=== PATIENT | male | born 1950 | race Caucasian/White ===

== ENCOUNTER 2024-10-18 07:39 | Inpatient (IN) | payer MEDICARE, OTHER, SELFPAY ==
[2024-10-18] VITALS (20 sets, daily range): BP systolic 126–166; BP diastolic 66–85; PULSE 68–95; RESP 15–25; TEMP 36.5–37.1; O2SAT 92–97; BMI 33.7
--- NOTE | ~2024-10-18 | CT_ITS ---
EXAMINATION: CTA chest PE abdomen pel DATE: 10/18/2024 10:09 INDICATION: Shortness of breath, cough and left upper quadrant abdominal pain TECHNIQUE: Computed tomography (CT) pulmonary angiogram of the chest was performed with 100 mL Omnipa que-350 intravenous contrast. Additional 3D reconstructions utilizing coronal maximum intensity proje ction (MIP) were performed. CT of the abdomen and pelvis was performed with intravenous contrast util izing the same contrast bolus following a short delay. Automated exposure control and iterative recon struction technique were employed. The dose-length product was 1283.20 mGy-cm. COMPARISON: CT abdomen dated 10/04 cm right FINDINGS: Chest: No pulmonary embolism. Patchy groundglass opacities and consolidation in the left lower lobe and depe ndent lingula consistent with aspiration or pneumonia. A few tiny calcified nodules in the right lowe r lobe and a couple large calcifications in the left upper lobe consistent with old granulomatous dis ease. No pulmonary edema or pleural effusion. Heart size is normal. No pericardial effusion. Thoracic aorta is normal in caliber with no dissection. No pathologically enlarged thoracic lymphadenopathy. Visualized upper abdomen is unremarkable. Moderate thoracic spondylosis with chronic appearing mild a nterior wedging of a few mid and lower thoracic vertebral bodies. Anterior plate and screw fixation f or C4-C7 anterior spinal fusion with incompletely visualized on the consulting services project manager topogram. Abdomen/pelvis: 1. No pulmonary embolism. 2. Aspiration and/or pneumonia in the left lower lobe and dependent lingula. IMPRESSION: 1. Reviewed, dictated and finalized at location A. IMPRESSION: 1.
--- NOTE | ~2024-10-18 | XR_ITS ---
CHEST RADIOGRAPH, PA AND LATERAL CLINICAL HISTORY: cough , shortness of breath, pain lt upper abdomen . COMPARISON: 02/27/2011 TECHNIQUE: PA and lateral views of the chest. FINDINGS Hazy opacification of the left heart border. The remainder of the cardiomediastinal silhouette is otherwise unremarkable. Blunting of the left costophrenic sulcus suggesting a small left-sided pleural effusion with adjacent compressive atelectasis. Redemonstration of a asymmetry within the left upper lobe, increased in size from 2010 with tenting o f the adjacent pleura. Unless this is a known finding, cross-sectional imaging is recommended. The remainder of the lungs are otherwise clear. IMPRESSION: Small left-sided pleural effusion with adjacent compressive atelectasis. Redemonstration of a multilobulated asymmetry within the left upper lobe, increased in size from 2010 with tenting of the adjacent pleura. Unless this is a known finding, cross-sectional imaging is recommended. Reviewed, dictated and finalized at location A. IMPRESSION: Small left-sided pleural effusion with adjacent compressive atelectasis. Redemonstration of a multilobulated asymmetry within the left upper lobe, incre ased in size from 2010 with tenting of the adjacent pleura. Unless this is a known finding, cross-sectional imaging is recommended.
--- OUTSIDE RECORDS SUMMARY | 2024-10-18 07:42 | XMS_ITS | Clinical Summary ---
Author Organization [facility] Address [address] [place] [address] Care Team Providers Care Car Rental Service Attendant Name Role Phone Peng Villatoro MD Primary Care Provider Source Comments [facility],non-owned Affiliates and Associated Physician Practices is amultiple site organization consisting of ambulatory clinics and hospital sitesin [place], [place], [place] and [place]. This disclosure is being madepursuant to the Care Everywhere program and may not contain all information available regarding this patient. Last updated 17.[facility] Allergies No known active allergies Medications * Be aware that medications may not be up to date on this document. Alwaysverify current medications with the patient. vilazodone (VIIBRYD) 20 MG tablet Take 20 mg by mouth daily with breakfast Active esomeprazole (NEXIUM) 40 MG capsule Take 40 mg by mouth daily before breakfast Active tamsulosin (FLOMAX) 0.4 MG capsule Take 0.4 mg by mouth once daily Take 30 minutes after a meal at the same time each day. 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 Gender Identity Not on file Sexual Orientation Not on file Last Filed Vital Signs Vital Sign Reading Time Taken Comments Blood Pressure 120/78 02/23/2018 10:40 AM ACADEMIC MANAGER Pulse 71 02/23/2018 10:40 AM ACADEMIC MANAGER Temperature 37.2 C (98.9 F) 02/23/2018 10:40 AM ACADEMIC MANAGER Respiratory Rate 16 02/23/2018 10:40 AM ACADEMIC MANAGER Oxygen Saturation 98% 02/23/2018 10:40 AM ACADEMIC MANAGER Inhaled Oxygen Concentration - - Weight 81.6 kg (180 lb) 02/23/2018 10:40 AM ACADEMIC MANAGER Height 167.6 cm (5' 6) 02/23/2018 10:40 AM ACADEMIC MANAGER Body Mass Index 29.05 02/23/2018 10:40 AM ACADEMIC MANAGER Plan of Treatment Health Maintenance Due Date Last Done Comments COLOGUARD (AGES 45-75) - COL ON CA SCREENING 1950 COLON MONITORING 1950 COLONOSCOPY - COLON CA SCREENING [address] CT COLONOGRAPHY - COLON CA SCREENING 1950 Colorectal Cancer Screening 1950 FIT - COLON CA SCREENING 1950 FLEX SIG - COLON CA SCREENING 1950 LIPID TESTING 1950 HEPATITIS C SCREENING 10/28/1968 DTAP/TDAP/TD VACCINES (1 - Tdap) 1969 PNEUMOCOCCAL VACCINE 50+ (1 of 1 - PCV) 2000 ZOSTER VACCINE (1 of 2) 2000 SCREENING FOR DIABETES 04/25/2017 COVID-19 VACCINE (1 - 2023-2 5 season) 2023 DEPRESSION SCREENING 03/03/2024 INFLUENZA VACCINE (#1) 2024 Respiratory Syncytial Virus (RSV) Vaccine Pt: or over 60 yrs (1 - 1-dose 75+ series) 2025 HEPATITIS B VACCINE Aged Out No longe r eligible based on patient's age to complete this topic HIB VACCINE Aged Out No longer eligi ble based on patient's age to complete this topic HPV VACCINE Aged Out No longer eligi ble based on patient's age to complete this topic MENINGOCOCCAL (Group B) VACC INE SHARED DECISION-MAKING Aged Out No longer eligibl e based on patient's age to complete this topic MENINGOCOCCAL GROUPS A/C/Y/W VACCINE Aged Out No longer eligible b ased on patient's age to complete this topic Insurance MEDICARE MEDICARE Care Teams Car Rental Service Attendant Relationship Specialty Start Date End Date Peng Villatoro MD [address] [place] [id number] PCP - General Internal Medicine 04/25/17
--- OUTSIDE RECORDS SUMMARY | 2024-10-18 07:42 | XMS_ITS | Clinical Summary ---
Author Organization [facility] Address [address] [place] [address] Care Team Providers Care Outer Diameter Grinder Name Role Phone Peng Villatoro MD Primary Care Provider Ca Cox MD Unavailable Gabby Churchill MD Unavailable [phone] Osmel Patel MD Unavailable [phone] Fei Barajas OD Unavailable [phone] Allergies No known active allergies Medications cyanocobalamin (Vitamin B-12) 2,000 mcg tablet Take 500 mcg by mouth daily Active cholecalciferol , vitamin D3, 5,000 unit/mL drops Take 5,000 Units by mouth daily Active fexofenadine (ROMELIA) 180 mg tabletIndicatio ns:prn Take 1 tablet (180 mg total) by mouth daily Active fluticasone propion-salmete roL (ADVAIR HFA) 230-21 mcg/actuation inhaler Inhale 2 puffs 2 (two) times a day Rinse mouth with water after use. Do not swallow. 3 each 3 4 Active albuterol HFA (PROVENTIL HFA,VENTOLIN HFA,PROAIR HFA) 90 mcg/actuation inhaler Inhale 2 puffs every 6 (six) hours as needed for wheezing Active vilazodone (VIIBRYD) 20 mg tabletIndicatio ns:major depressive disorder Take 1 tablet (20 mg total) by mouth every morning Active losartan (COZAAR) 50 mg tablet Take 1 tablet (50 mg total) by mouth nightly Active montelukast (SINGULAIR) 10 mg tablet Take 1 tablet (10 mg total) by mouth nightly Active testosterone 1.62 % (20.25 mg/1.25 gram) gel in packet Place on the skin daily Active esomeprazole DR (NexIUM) 40 mg capsule Take 1 capsule (40 mg total) by mouth daily before dinner 90 capsule 1 5 Active acetaminophen 500 mg capsuleIndicati ons:Pain Take 2 capsules (1,000 mg total) by mouth every 6 (six) hours 5 Active senna-docusate (PERICOLACE) 8.6-50 mgIndications:c onstipation Take 2 tablets by mouth 2 (two) times a day 5 Active tamsulosin (FLOMAX) 0.4 mg extended release capsule TAKE 1 CAPSULE DAILY 90 capsule 3 5 Active cyclobenzaprine (FLEXERIL) 5 mg tablet Take 1 tablet (5 mg total) by mouth every 8 (eight) hours as needed for muscle spasms 90 tablet 5 Active oxyCODONE (ROXICODONE) 5 mg immediate release tabletIndicatio ns:Pain Take 1 tablet (5 mg total) by mouth every 4 (four) hours as needed for pain 42 tablet 5 Active tirzepatide, weight loss, (Zepbound) 2.5 mg/0.5 mL pen injectorIndicat ions:BMI 34.0-34.9,adult ,Obstructive sleep apnea Inject 0.5 mL (2.5 mg total) under the skin every 7 days 2 mL 5 Active pravastatin (PRAVACHOL) 10 mg tablet Take 1 tablet (10 mg total) by mouth daily 90 tablet 4 5 06/20/19 26 Active amoxicillin (AMOXIL) 500 mg tablet/capsule Take 4 pills 1 hour prior to procedure 4 tablet/capsul e 5 Active cephalexin (KEFLEX) 500 mg capsule TAKE 1 CAPSULE BY MOUTH EVERY 6 HOURS UNTIL GONE 5 Active meloxicam (MOBIC) 15 mg tablet Take 1 tablet (15 mg total) by mouth daily 30 tablet 2 5 11/12/19 25 Active testosterone (ANDROGEL) 1 % (25 mg/2.5gram) gel in packet PLACE 1 PACKET ON THE SKIN ONCE DAILY 75 g 5 Active atorvastatin (LIPITOR) 10 mg tablet Take 1 tablet (10 mg total) by mouth daily 90 tablet 5 10/16/19 26 Active Active Problems Problem Noted Date Diagnosed Date Cervical myelopathy with cervical radiculopathy 03/24/2024 Spinal stenosis in cervical region 02/19/2024 Cervical spondylosis with myelopathy 02/19/2024 Restless legs syndrome 04/29/2023 Assessment & Plan (08/18/2023 2:33 PM CDT): Denied need for medication Assessment & Plan (04/29/2023 1:23 PM UNIT LEADER): I have started gabapentin 300 mg nightly try to consolidate patient sleep and Relieve the tingling and pain in his feet. Esophageal stricture 01/07/2023 Transient ischemic attack 01/07/2023 Pain in both upper extremities 04/30/2022 Assessment & Plan (04/30/2022 2:16 PM UNIT LEADER): I did inform the patient to message his primary care for provider for further evaluation. The patient verbalized that he would message in [employer]. Obstructive sleep apnea 12/25/2021 Assessment & Plan (08/23/2024 1:21 PM CDT): The patient continues to benefit from the auto titrating CPAP unit with a range of 5-15 cm water pressure for ongoing symptoms of AURELIO. His DME supplier is [employer]. He will follow up here in 1 year. Assessment & Plan (08/18/2023 2:33 PM CDT): Due to continued symptoms, the patient will continue CPAP at 5-15 cm water pressure. Denied need for supplies. DME [facility] Assessment & Plan (04/29/2023 1:24 PM UNIT LEADER): Due to continued symptoms, the patient will continue CPAP at 5-15 cm water pressure. Denied need for supplies. DME [facility] Assessment & Plan (04/30/2022 2:15 PM UNIT LEADER): Patient continue to wear his CPAP in auto titrating range of five to 20 cm water pressure while sleeping. His DME is [employer]. Assessment & Plan (12/25/2021 2:14 PM CDT): Patient continue to wear his CPAP in auto titrating range of five to 20 cm water pressure while sleeping. His DME is [employer]. Mild persistent asthma 11/04/2021 Hypersomnia 09/04/2021 Benign prostatic hyperplasia with nocturia 01/03 Low testosterone in male 12/26/2020 Lesion of bladder 09/11/2020 Overview (09/11/2020): Added automatically from request for surgery [id number] Sensorineural hearing loss (SNHL) of both ears 0 06/12/2020 Dysfunction of both eustachian tubes 06/12/2020 TMJ arthralgia 06/12/2020 Microscopic hematuria 03/09/2020 Upper back pain on right side 03/02/2020 Assessment & Plan (03/02/2020 4:33 PM UNIT LEADER): Musculoskeletal Pain Assessment: Musculoskeletal in nature, likely muscle spasm or muscle strain. Reassuring exam, no red flags, no role for imaging at this time. Musculoskeletal Pain Plan: Musculoskeletal types of injuries do best with daily around the clock treatment and can persist for roughly 4-6 weeks. Do not overuse the area of concern and utilize the the symptom management below. If you are not bit by bit better in 4-6 weeks please make a return visit for follow-up for the next steps. Physical Therapy/Imaging and other testing or therapy will be done on an individual basis as needed. For more help with stretching/exercises check out [facility] exercises via Youtube. Symptom management includes: -Tylenol (acetaminophen) 1000mg every 8 hours as needed for pain. Do not use when drinking alcohol as both metabolize through the liver. (Max dose is 1000mg every 8 hours) Consistency is sesay, but try NOT to use more than 3 weeks at at time. (Only use the dose you need for the control of the pain- if 325mg every 8 hours works then use the 325mg every 8 hours). - Use the Muscle Relaxer (cyclobenzaprine) as needed, along with the anti-inflammatory above. The use of the muscle relaxer should also be done on a more consistent basis, even just nightly to help relieve the muscle spasms/tension. Take this medication about 1 hour prior to going to bed to see if it makes you sleepy. Do not use this medication if you are operating heavy machinery or if it makes you drowsy. - Diclofenac gel to be used topically as needed on affected area for pain - Rest area. If it hurts do not continue to do that activity, do not overexert, but stay as physically active as possible. Your muscles will stiffen up if you do not use them. - Heat and/or Ice to the area at least twice a day for 20 minutes. Doing this more often is encouraged. Typically will use Heat for muscle spasms and Ice with joints and swelling, but either or both can be used depending on your preference. (Check into the heat stick on patches at our pharmacy as these can be very convenient). If you use a heating pad, great- just do not sleep with the heating pad as it may burn you. - Continue to do gentle stretching exercises at least twice a day, best if after the heat/ice application. - Can use Biofreeze or [facility], sold over the counter, follow directions on the medication. - Can use a lidocaine patch, sold over the counter, follow directions on the medication. Do not use at the same time you use heat on the area. Dysphagia 07/11/2017 Hyperlipidemia 11/18/2016 GERD (gastroesophageal reflux disease) 4 Anemia 06/25/2011 Depression 06/25/2011 Hypertension 06/25/2011 Shortness of breath Resolved Problems Problem Noted Date Diagnosed Date Resolved Date Snoring 09/04/2021 12/25/2021 Assessment & Plan (09/04/2021 2:00 PM CDT): I have ordered a nocturnal polysomnogram split night protocol if necessary, no MSLT. Tinnitus of both ears 06/12/20202020 Dysuria 03/15/2020 10/11/2021 Malaise and fatigue 03/15/2020 10/12/19 22 Acute non-recurrent frontal sinusitis 11/01/2019 10/11/2021 Assessment & Plan (11/01/2019 2:36 PM CDT): On day 7, covid test negative. Can not fully fit as a bacterial sinus infection at this time, however two more day and he is feeling bit by bit worse, with low grade fever and starting with tooth pain. Will have him add the flonase and the tylenol to the Claritin regimen (stop ibu) for the next two days If no improvement he will need to go and pickle processor the antibiotic and begin as directed until gone. Start antibiotics after Friday if needed. General Discussion regarding Role of antibiotics: Antimicrobial therapy -- Many Upper Respiratory Infections are caused by viruses. Inappropriate use of antibiotics for viral respiratory infections can cause adverse events and contribute to development of antibiotic resistance. It is my goal to keep you safe and healthy medical terminologist as well as help you feel better. If antibiotics or steroids are ordered: Be aware of the potential adverse effects of each. Gastrointestinal upset (diarrhea/nausea) happens frequently-yogurt or a probiotic are encouraged along with drinking plenty of fluids. Please also continue the general measures below for symptom control. Rest and plenty of oral fluids are encouraged. Should symptoms not improve or should they get worse following the completion of antibiotic therapy the patient is encouraged to call this office. Symptom Management: To help keep the healing process on track please make sure to keep up with oral fluids 64 ounces of water and get plenty of rest while using the following guide to help you with your symptoms. # Pain, Fever and Inflammation: Tylenol/acetaminophen 1000mg every 8 hours as needed, but more regularly with symptoms. Max dose of Tylenol 3,000 per day- no more than 1,000mg every 8 hours. Please do not take tylenol/acetaminophen if you have liver issues of if you drink alcohol daily . Alcohol and tylenol/acetaminophen as they both metabolize through the liver. Only take the lowest dose needed for the shortest amount of time- do not use more than 2 weeks without calling our office. # Runny Nose, Sinus Congestion, Back of the Throat Drainage, Itchy Throat: Antihistamine daily (at night if it makes you tired) Examples are: Zyrtec/Cetrizine, Romelia/Fexofenadine or Claritin/Loratadine- only choose and use one and take as directed on the box. Neti-pot OR Normal Saline Nose [place] in the morning and the evening at least. Use the normal saline/neti-pot prior to other medicated nose sprays. This will help to rinse the nose prior to fluticasone. This will also help keep your nose moist and help avoid nose scabbing/nose bleeds. Flonase/fluticasone or Nasacort nose spray. Use 2 sprays each nostril the first dose and then change to 1 spray each nostril morning and evening. Only take the lowest dose needed for the shortest amount of time- do not use more than 3 weeks without calling our office. Use after normal saline nose spray/neti-pot. # Itchy Watery eyes: Ketotifen (Zaditor or Alaway OTC Zyrtec) 1 drop every 8 to 12 hours OR Pataday Olopatadine OTC Patanol 0.1% 1 drop in each eye twice a day at an interval of 6 to 8 hours. # Cough Suppression and Mucus Thinning: Mucinex DM morning and evening. This medication is safe for people with high blood pres sure. If you have High Blood Pressure, avoid decongestants such as pseudoephedrine (Sudafed) and phenylephrine-these will raise your blood pressure. Tessalon Pearls if ordered and as needed for cough- This is a prescription medication your provider has to send in. # Sore or Itchy Throat: Throat spray, cough drops, salt water gargle (1 teaspoon salt in 1cup/8oz. of warm water) morning and evening at least, and warm tea (water if you do not like tea) with honey and lemon. Can also try to melt a cough drop into the tea to help. If illness goes beyond 10 days please let the office know for next steps. Call the office with questions. Wheezing 10/11/2021 Encounters Date Type Department Care Team Description 09/17/2024 1:20 PM CDT Office Visit [facility] [address] [place] [phone] Peng Villatoro MD Mixed hyperlipidemia (Primary Dx); Primary hypertension; Gastroesophageal reflux disease without esophagitis; Recurrent major depressive disorder, in full remission; BMI 34.0-34.9,adult 09/17/2024 Telephone [facility] [address] [place] [phone] Peng Villatoro MD PA ZEPBOUND 2.5MG/0.5ML (Sesay: [id number]) 09/11/2024 7:25 AM CDT - 09/11/2024 11:59 PM CDT Hospital Encounter [facility] [address] [place] [phone] Cough, unspecified type Discharge Disposition: Discharge to home or self care 09/10/2024 1:17 PM CDT - 09/10/2024 11:59 PM CDT Hospital Encounter [facility] [address] [place] [phone] Cough, unspecified type Discharge Disposition: Discharge to home or self care 08/27/2024 10:31 AM CDT - 08/27/2024 11:59 PM CDT Hospital Encounter [facility] [address] [place] [address] Tino Trevino MD Right hip pain (Primary Dx) Discharge Disposition: Discharge to home or self care 08/23/2024 1:15 PM CDT Office Visit [facility] [address] [phone] Vic Chen MD Obstructive sleep apnea (Primary Dx) 08/20/2024 Telephone [facility] [address] [place] [address] [place] [phone] Peng Villatoro MD PA TESTOSTERONE 25MG/2.5GM (1%) GEL (Sesay: [id number]//Status/Sent to Plan today/Drug/Testosterone 25 MG/2.5GM(1%) gel//Form/ Electronic PA Form (2017 GAPDP)/Original Claim Info/75 CALL HELP DESK/) 08/18/2024 1:45 PM CDT Office Visit [facility] [address] [facility] [address]th [place] [address] [place] [address] Dean Samson MD Right shoulder pain, unspecified chronicity (Primary Dx); Chronic right shoulder pain; Arthritis of right shoulder 08/18/2024 1:06 PM CDT - 08/18/2024 11:59 PM CDT Hospital Encounter [facility] [address] [place] [address] Right shoulder pain, unspecified chronicity Discharge Disposition: Discharge to home or self care 08/13/2024 11:00 AM CDT Office Visit [facility] [address] [facility] Medical Office Building [address] [place] [phone] Jenny Martinez NP Hip pain, right (Primary Dx); Right hip pain 08/13/2024 10:27 AM CDT - 08/13/2024 11:59 PM CDT Hospital Encounter [facility] [address] [facility] [address] [place] [phone] Hip pain, right Discharge Disposition: Discharge to home or self care 08/06/2024 1:20 PM CDT Office Visit [facility] Department of Otolaryngology Head-Neck Division [address] [facility] Floor 5 [place] [phone] Janell Delaney PA Laryngopharyngeal reflux (LPR) (Primary Dx) 07/21/2024 Telephone [facility] [address] [place] [address] Medical Office Building [address], [address] [place] [phone] Beba Ridley CMA [facility] Appt. from Last 3 Months Immunizations Immunization Administration Dates Next Due Influenza, Quadrivalent, Hig h Dose, Preservative Free, Intrr 02/10/2023,02/01/2022,12/28/2019 Influenza, Trivalent, Adjuva nted, Intramuscular 12/09/2017 Influenza, Trivalent, High D ose, Split, Preservative Free, Intramuscular 12/14/2018,11/18/2016,11/13/2015 Influenza, Trivalent, Preser vative Free, Intramuscular 11/23/2014 Influenza, Unspecified 02/10/2023,12/05/2006 Pneumococcal Conjugate PCV 13 11/13/2015 Pneumococcal Polysaccharide PPV23 11/18/2016 Tdap 07/26/2015,09/02/2007 ZOSTER Recombinant 08/30/2018,06/16/2018 Surgical History Surgery Date Site/Laterality Comments ESOPHAGOGASTRODUODENOSCOPY COLONOSCOPY SINUS SURGERY VASECTOMY TONSILLECTOMY FLUORO GUIDED INJECTION HIP RIGHT 08/27/2024 Right Medical History Medical History Date Comments Basal cell carcinoma Difficulty swallowing Hypertension GERD (gastroesophageal reflux disease) Anxiety Restless legs syndrome (RLS) per Pt TIA (transient ischemic attack) HL (hearing loss) Sleep apnea Asthma 2021 Spinal stenosis in cervical region Obesity Family History Medical History Relation Name Comments Cancer Brother 1 C Family history of malignant neoplasm - (Added by TW Conv) Liver disease Brother 2 Family history of hepatic failure - (Added by TW Conv) Cancer Father W Family history of malignant neoplasm - (Added by TW Conv) Hearing loss Father W Kidney disease Father W Family histor y of kidney disease - (Added by TW Conv) Crohn's disease Mother Family histo ry of Crohn's disease - (Added by TW Conv) Heart attack Mother Family history of myocardial infarction - (Added by TW Conv) Cancer Sister B Family history of malignant neoplasm - (Added by TW Conv) Relation Name Status Comments Brother 1 C Brother 2 Father W Mother Sister B Social History Tobacco Use Types Packs/Day Years Used Date Smoking Tobacco: Never Smokeless Tobacco: Never Tobacco Cessation:Counseling Given: Yes Alcohol Use Standard Drinks/Week Comments Yes 0 (1 standard drink = 0.6 oz pur e alcohol) AUDIT-C Answer Date Recorded Q1: How often do you have a drink containing alcohol? 4 or more times a week 03/15/2024 Q2: How many drinks containi ng alcohol do you have on a typical day when you are drinking? 1 or 2 Q3: How often do you have si x or more drinks on one occasion? Never 03/15/2024 PHQ-2 Answer Date Recorded PHQ-2 Total Score (If total score is 3 or more points, staff should administer the PHQ-9) 0 06/18/2024 Personal Safety Answer Date Recorded Have you ever been in or are you currently in a harmful physical or emotional relationship or is someone making you feel afraid or unsafe? Denies 08/27/2024 Sex and Gender Information Value Date Recorded Sex Assigned at Not on file Legal Sex Male 2:13 AM UNIT LEADER Gender Identity Male 02/08/2020 2:48 PM UNIT LEADER Sexual Orientation Straight 02/08/2020 2: 48 PM UNIT LEADER Obstetrics History Last Filed Vital Signs Vital Sign Reading Time Taken Comments Blood Pressure 134/64 09/17/2024 1:33 PM CDT Pulse 75 09/17/2024 1:19 PM CDT Temperature 36.7 C (98 F) 08/23/2024 1:04 PM CDT Respiratory Rate 18 08/27/2024 11:2 6 AM CDT Oxygen Saturation 96% 09/17/2024 1:19 PM CDT Inhaled Oxygen Concentration - - Weight 97.4 kg (214 lb 12.8 oz) 09/17/2024 1:19 PM CDT Height 167.6 cm (5' 6) 08/23/2024 1:04 PM CDT Body Mass Index 34.67 08/23/2024 1:04 PM CDT Plan of Treatment Scheduled Procedures Name Priority Associated Diagnoses Date/Ti me ESOPHAGOGASTRODUODENOSCOPY Esophageal dysphagia Health Maintenance Due Date Last Done Comments Hepatitis B Screening 1968 Influenza Vaccine (#1) 2024 , 02/10/2023, 02/01/2022, Additional history exists Depression Screening 06/18/2025 06/18/2024, 10/06/2023, 06/16/2023, Additional history exists Well Visit 65+ 06/18/2025 06/18/2024, 06/01, 06/16/2023, Additional history exists DTaP/Tdap/Td Vaccine (3 - Td or Tdap) 07/25/2025 07/26/2015, 09/02/2007 Fall Risk Assessment 08/27/2025 08/27/2024, 06/18/2024, 06/16/2023, Additional history exists Colon Cancer Screening-Colonoscopy 04/16/2026 04/16/2016 Colon Cancer Screening-CT Colonography Discontinued 04/16/2016 Colon Cancer Screening-DNA Stool Discontinued 04/16/19 17 Colon Cancer Screening-FIT Discontinued 04/16/2016 Colon Cancer Screening-Sigmoidoscopy Discontinued 04/16/2016 Pneumococcal vaccine 65+ Completed 11/18/2016, 11/01 Zoster Vaccine Completed 08/30/2018, 06/16/2018 Hepatitis C Screening Completed 12/14/2018 Prostate Cancer Screening-PSA Discontinued , 06/20/2023, 01/10/2022, Additional history exists Medical Devices Implanted Type Area Grave Digger Device Identifier Shelf Expiration Date Model / Serial / Lot [employer],Gastric Clip,Resolution 360 Ultra Stomach Musculoskeletal Transplant [id number] Frozen Spine 7d Lordotic Trapezoid Spacer Allograft [id number] - [id number] - [id number] Implanted:Qty: 1 on 03/24/2024 by Roel Toro MD at [facility] N/A: Spine Cervical Musculoskeletal Transplant 01/07/2028 [id number] / [id number] / Musculoskeletal Transplant [id number] Freeze Dried Spine 7d Lordotic Trapezoid Spacer 647013 - [id number] - [id number] Implanted:Qty: 1 on 03/24/2024 by Roel Toro MD at [facility] N/A: Spine Cervical Musculoskeletal Transplant 01/11/2026 [id number] / [id number] / Musculoskeletal Transplant [id number] Frozen Spine 7d Lordotic Trapezoid Spacer Allograft 602763 - [id number] - [id number] Implanted:Qty: 1 on 03/24/2024 by Roel Toro MD at [facility] N/A: Spine Cervical Musculoskeletal Transplant 05/24/2028 [id number] / [id number] / [employer] Maxan 48mm Level 3 Spine Cervical Anterior Plate Bone Titanium [id number] - [id number] Implanted:Qty: 1 on 03/24/2024 by Roel Toro MD at [facility] N/A: Spine Cervical [employer] [id number] / / [employer] 4mm 16mm Fix Screw Bone [id number] - [id number] Implanted:Qty: 6 on 03/24/2024 by Roel Toro MD at [facility] N/A: Spine Cervical [employer] [id number] / / [employer] 4.5mm 16mm Fix Screw Bone [id number] - [id number] Implanted:Qty: 2 on 03/24/2024 by Roel Toro MD at [facility] N/A: Spine Cervical [employer] [id number] / / Explanted Type Area Grave Digger Device Identifier Shelf Expiration Date Model / Serial / Lot [employer] 4mm 16mm Fix Screw Bone [id number] - [id number] Explanted:Qty: 1 on 03/24/2024 by Roel Toro MD at [facility] N/A: Spine Cervical [employer] [id number] / / Procedures Procedure Name Priority Date/Time Associated Diagnosis Comments AEROBIC CULTURE AND GRAM STAIN Routine 09/11/2024 7:00 AM CDT Cough, unspecified type XR CHEST PA LATERAL 2 VIEWS Schedule Routine, Read Routine (OP Routine) 09/10/2024 1:29 PM CDT Cough, unspecified type FLUORO GUIDED INJECTION HIP RIGHT Schedule Routine, Read Routine (OP Routine) 08/27/2024 11:22 AM CDT Right hip pain TX ARTHROCENTESIS ASPIR&/INJ MAJOR JT/BURSA W/O US Routine 08/18/2024 1:45 PM CDT Right shoulder pain, unspecified chronicity Arthritis of right shoulder XR SHOULDER RIGHT 2 OR MORE VIEWS Schedule Routine, Read Routine (OP Routine) 08/18/2024 1:14 PM CDT Right shoulder pain, unspecified chronicity XR HIP RIGHT W PELVIS 2 OR 3 VIEWS Schedule Routine, Read Routine (OP Routine) 08/13/2024 10:51 AM CDT Hip pain, right PSA SCREEN Routine 06/18/2024 10:10 AM CDT Prostate cancer screening HEPATITIS C ANTIBODY Routine 12/14/2018 12:18 PM CDT Need for hepatitis C screening test COLONOSCOPY REPORT 04/16/2016 from Last 3 Months or Most Recently Relevant to Health Maintenance Results * Aerobic culture and gram stain Sputum Sputum (09/11/2024 7:00 AM CDT) Direct Specimen Exam Stain: Abundant squamous epithelial cells seen indicating excessive oropharyngeal contamination. Culture will not be processed further. Please submit another specimen. Smear results called to and read back by: Charmaine Desai MT ([phone]) on 09/11/2024 12:06:45 by: Bryan Levin MLS Comment:Testing performed by : [facility], [address] [place]., [address] Report Final Report: This is the final report. KEYONNA Comment:Testing performed by : [facility], [address] [place] [address]., [id number] Sputum (Sputum) 09/11/2024 7 :00 AM CDT 09/11/2024 11:09 AM CDT Narrative KEYNONA PATTEN - 09/12/2024 8:16 AM CDT With susceptibility Testing performed by [facility] ([phone]) Specimens submitted from normally sterile body sites will have all bacterial morphotypes identified. Specimens that contain grossly mixed alexx and/or are from body sites that are not normally sterile will be examined for Staphylococcus aureus, Pseudomonas aeruginosa, beta-hemolytic strep, vancomycin-resistant Enterococcus and fungus. If any of these are isolated, the organism will be reported. Current interpretive data was last revised on 2016. us Vic Chen MD LAB MICROBIOLOGY - GENERA L ORDERABLES Final Result [facility] [address] [facility] Department [place] [address] * X-ray chest 2 views (09/10/2024 1:29 PM CDT) Anatomical Region Laterality Modality Body, Chest N/A Computed Radiogr aphy 09/12/2024 1:17 PM CDT Narrative 09/12/2024 1:30 PM CDT EXAM DESCRIPTION: XR CHEST PA LATERAL 2 VIEWS REASON FOR STUDY: Cough, wheezing, SOB x 2 months TECHNIQUE: There are 2 radiographic view(s) of the chest. COMPARISON: 06/17/2023, 05/22/2023 and 01/17/2022 FINDINGS: LUNGS: Pulmonary vascularity appears normal. No confluent infiltrate or effusion. Costophrenic angles are sharp. Calcified granuloma left upper lobe, unchanged. HEART/MEDIASTINUM: Cardiac silhouette normal in size. Mediastinal and hilar contours appear normal. LINES/TUBES: None. BONES: Gjou-gd-thtseevs multilevel spondylosis thoracic spine. Cervical fusion plate new in the interval partially visualized. IMPRESSION: No acute findings or infiltrate. THIS IS AN ELECTRONICALLY VERIFIED FINAL REPORT 09/12/2024 1:30 PM - Electronically signed by Anthony FIELDS: DIAMOND Report ID: [id number] Reading Location: [id number] Procedure Note Anthony Simental MD - 09/12/2024 EXAM DESCRIPTION: XR CHEST PA LATERAL 2 VIEWS REASON FOR STUDY: Cough, wheezing, SOB x 2 months TECHNIQUE: There are 2 radiographic view(s) of the chest. COMPARISON: 06/17/2023, 05/22/2023 and 01/17/2022 FINDINGS: LUNGS: Pulmonary vascularity appears normal. No confluent infiltrate or effusion. Costophrenic angles are sharp. Calcifiedgranuloma left upper lobe, unchanged. HEART/MEDIASTINUM: Cardiac silhouette normal in size. Mediastinal andhilar contours appear normal. LINES/TUBES: None. BONES: Yhmo-rs-bikcuwjb multilevel spondylosis thoracic spine. Cervical fusion plate new in the interval partially visualized. IMPRESSION: No acute findings or infiltrate. THIS IS AN ELECTRONICALLY VERIFIED FINAL REPORT 09/12/2024 1:30 PM - Electronically signed by Anthony FIELDS: DIAMOND Report ID: [id number] Reading Location: [id number] us Vic Chen MD IMG XR PROCEDURES Final R esult * FL Fluoro Guided Injection Hip Right (08/27/2024 11:22 AM CDT) Narrative [facility] - 08/27/2024 11:22 AM CDT The images from this study are not interpreted by Radiology. Please refer to the physician's procedure / OR operative note. us Jenny Martinez NP IMG FLUOROSCOPY PROCEDURE S Final Result [facility] * TX ARTHROCENTESIS ASPIR&/INJ MAJOR JT/BURSA W/O US (08/18/2024 1:45 PM CDT) Narrative Dean Samson MD - 08/18/2024 1:45 PM CDT Dean Samson MD 08/20/2024 7:45 AM Large Joint Injection: R glenohumeral Performed by: Dean Samson MD Authorized by: Dean Samson MD Supporting Documentation: Indications: Pain Procedure Details: Location: Shoulder Site: R glenohumeral Prep: patient was prepped using a clean technique Needle Size: 22 G Medications: 4 mL lidocaine 10 mg/mL (1 %); 80 mg triamcinolone 40 mg/mL; 4 mL BUPivacaine HCl 0.5 % (5 mg/mL) us Dean Samson MD IN CLINIC/BEDSIDE ORDERABL ES Final Result * XR Shoulder Right 2+ View (08/18/2024 1:14 PM CDT) Anatomical Region Laterality Modality Upper Extremities, Shoulder Right Comp uted Radiography 08/18/2024 2:00 PM CDT Impressions 08/18/2024 2:00 PM CDT Moderate to severe right glenohumeral osteoarthritis. Electronically signed by: Tee Rivero MD Narrative 08/18/2024 2:00 PM CDT EXAMINATION: XR SHOULDER RIGHT 2 OR MORE VIEWS HISTORY: Right shoulder pain FINDINGS: Comparison dated 06/17/2023. There is acquired glenoid retroversion with biconcave remodeling and moderate posterior subluxation. Moderate to severe right glenohumeral osteoarthritis. No fracture. Moderate right acromioclavicular osteoarthritis. Procedure Note Tee Rivero MD - 08/18/2024 EXAMINATION: XR SHOULDER RIGHT 2 OR MORE VIEWS HISTORY: Right shoulder pain FINDINGS: Comparison dated 06/17/2023. There is acquired glenoid retroversion with biconcave remodeling and moderate posterior subluxation. Moderate to severe right glenohumeral osteoarthritis. No fracture. Moderate right acromioclavicular osteoarthritis. IMPRESSION: Moderate to severe right glenohumeral osteoarthritis. Electronically signed by: Tee Rivero MD Dean Samson MD IMG XR PROCEDURES Final Re sult * XR Hip Right 2 or 3 Views W Pelvis (08/13/2024 10:51 AM CDT) Anatomical Region Laterality Modality Lower Extremities, Hip, Pelvis Right C omputed Radiography 08/13/2024 10:5 9 AM CDT Impressions 08/13/2024 10:59 AM CDT 1. Mild right hip osteoarthritis. Electronically signed by: Ana Herron MD Narrative 08/13/2024 10:59 AM CDT EXAMINATION: XR HIP RIGHT 2 OR 3 VIEWS W PELVIS HISTORY: Hip pain. FINDINGS: No comparison. No acute fracture. Mild right hip osteoarthritis. Alignment is normal. Clips overlie the scrotum. Procedure Note Ana Herron MD - 08/13/2024 EXAMINATION: XR HIP RIGHT 2 OR 3 VIEWS W PELVIS HISTORY: Hip pain. FINDINGS: No comparison. No acute fracture. Mild right hip osteoarthritis. Alignment is normal. Clips overlie the scrotum. IMPRESSION: 1. Mild right hip osteoarthritis. Electronically signed by: Ana Herron MD Jenny Martinez SOCIOLOGY ADJUNCT INSTRUCTOR IMG XR PROCEDURES Final R esult * PSA screen (06/18/2024 10:10 AM CDT) Pathologist [facility] PSA 0.7 0.0 - 4.0 ng/mL [facility] - 01 Comment: Ruthie ECLIA methodology. According to the [place] [employer], Serum PSA should decrease and remain at undetectable levels after radical prostatectomy. The AUA defines biochemical recurrence as an initial PSA value 0.2 ng/mL or greater followed by a subsequent confirmatory PSA value 0.2 ng/mL or greater. Values obtained with different assay methods or kits cannot be used interchangeably. Results cannot be interpreted as absolute evidence of the presence or absence of malignant disease. Blood 06/18/2024 10:1 0 AM CDT 06/18/2024 Narrative [facility] - 06/19/2024 8:10 AM CDT Performed at: [address] [place] [id number] Budget Engineer: Rickey Poole PhD, Phone: [phone] Peng Villatoro MD LAB BLOOD ORDERABLES F inal Result Performing Organization Address [facility] Co de Phone Number [facility] - * Hepatitis C antibody (12/14/2018 12:18 PM CDT) Pathologist [facility] Hep C Ab Nonreactive Nonreactive [facility] Comment: Interpretive Data Positive results should be confirmed by a molecular method. If positive, a second separately collected sample should be submitted for Hepatitis C Virus (HCV) RNA Detection and Quantitation by Real-Time Reverse Machine Clothing Worker-PCR (RT-PCR). Current interpretive data was last revised on 2016. Blood specimen (specimen) 12/14/2018 12:18 PM CDT 12/14/2018 8:10 PM CDT Peng Villatoro MD LAB MICROBIOLOGY - GEN ERAL ORDERABLES Final Result Performing Organization Address [facility] Co de Phone Number [facility] [address] [place] [address] * COLONOSCOPY REPORT (04/16/2016) Anatomical Region Laterality Modality Other Narrative 04/16/2016 Ordered by an unspecified provider. us Historical Provider GI PROCEDURE ORDERABLES F inal Result from Last 3 Months or Most Recently Relevant to Health Maintenance Insurance MEDICARE The Extraordin[employer] LIFE MEDICARE FOR LIFE MEDICARE FOR LIFE MEDICARE FOR LIFE Advance Directives For more information, please contact: [phone] * Full Code (Latest Code Status on File) Date Activated Date Inactivated Comments 03/24/2024 8:39 PM 03/25/2024 5:11 PM * Full Code Date Activated Date Inactivated Comments 10/18/2021 1:23 PM 10/18/2021 9:04 PM * Full Code Date Activated Date Inactivated Comments 08/18/2017 11:27 AM 08/18/2017 3:46 PM Care Teams Outer Diameter Grinder Relationship Specialty Start Date End Date Peng Villatoro MD PCP - General 04/16/16 Ca Cox MD Nutrition Technician Dermatology 12/09/17 Gabby Churchill MD It Software Engineer Gastroenterology 12/09/17 Osmel Patel MD [address] [place] [address] It Software Engineer Gastroenterology 12/09/17 Fei Barajas OD [address] [place] [address] Ophthalmology 12/09/17
--- NOTE | 2024-10-18 07:51 | ECG_ITS ---
Test Date: 2024-10-18 09:10:56 Measurements Intervals [place] Rate: 79 P: 15 DC: 169 QRS: -1 QRSD: 107 T: 8 QT: 355 QTc: 408 Interpretive Statements SINUS RHYTHM DELAYED PRECORDIAL R/S TRANSITION CONSIDER INFERIOR INFARCT, AGE INDETERMINATE ABNORMAL ECG No previous ECG available for comparison Electronically Signed On 10-18-2024 09:17:08 CDT by Alfonso Jackman D.O.
--- OUTSIDE RECORDS SUMMARY | 2024-10-18 08:44 | XMS_ITS | Clinical Summary ---
Author Organization [facility] [employer] Address [address] [place] [address] Care Team Providers Care Assistant Professor Sculpture Name Role Phone Peng Villatoro MD Primary Care Provider Source Comments [facility] [employer],non-owned Affiliates and Associated Physician Practices is amultiple site organization consisting of ambulatory clinics and hospital sitesin [place], [place], [place] and [place]. This disclosure is being madepursuant to the Care Everywhere program and may not contain all information available regarding this patient. Last updated 17.[facility] [employer] Allergies No known active allergies Medications * [...] on file Legal Sex Male 5:50 PM TAX SERVICES SPECIALIST Gender Identity Not on file Sexual Orientation Not on file Last Filed Vital Signs Vital Sign Reading Time Taken Comments Blood Pressure 120/78 02/23/2018 10:40 AM TAX SERVICES SPECIALIST Pulse 71 02/23/2018 10:40 AM TAX SERVICES SPECIALIST Temperature 37.2 C (98.9 F) 02/23/2018 10:40 AM TAX SERVICES SPECIALIST Respiratory Rate 16 02/23/2018 10:40 AM TAX SERVICES SPECIALIST Oxygen Saturation 98% 02/23/2018 10:40 AM TAX SERVICES SPECIALIST Inhaled Oxygen Concentration - - Weight 81.6 kg (180 lb) 02/23/2018 10:40 AM TAX SERVICES SPECIALIST Height 167.6 cm (5' 6) 02/23/2018 10:40 AM TAX SERVICES SPECIALIST Body Mass Index 29.05 02/23/2018 10:40 AM TAX SERVICES SPECIALIST Plan of Treatment Health Maintenance Due Date [...] this topic Insurance MEDICARE MEDICARE Care Teams Assistant Professor Sculpture Relationship Specialty Start Date End Date Peng Villatoro MD [address] [place] [phone] PCP - General Internal Medicine 04/25/17
--- OUTSIDE RECORDS SUMMARY | 2024-10-18 08:44 | XMS_ITS | Clinical Summary ---
Author Organization [facility] Address [address] [place] [address] Care Team Providers Care Science Education Professor Name Role Phone Peng Villatoro MD Primary Care Provider Ca Cox MD Unavailable Gabby Churchill MD Unavailable [phone] Osmel Patel MD Unavailable [phone] Fei Barajas OD Unavailable [phone] Allergies No known active allergies Medications [...] medication Assessment & Plan (04/29/2023 1:23 PM HEAVY TRUCK MECHANIC): I have started gabapentin 300 mg nightly try to consolidate patient sleep and Relieve the tingling and pain in his feet. Esophageal stricture 01/07/2023 Transient ischemic attack 01/07/2023 Pain in both upper extremities 04/30/2022 Assessment & Plan (04/30/2022 2:16 PM HEAVY TRUCK MECHANIC): I did inform the patient to message his primary care for provider for further evaluation. The patient verbalized that he would message in [place]. Obstructive sleep apnea 12/25/2021 Assessment & Plan [...] adapt Assessment & Plan (04/29/2023 1:24 PM HEAVY TRUCK MECHANIC): Due to continued symptoms, the patient will continue CPAP at 5-15 cm water pressure. Denied need for supplies. DME adapt Assessment & Plan (04/30/2022 2:15 PM HEAVY TRUCK MECHANIC): Patient continue to wear his CPAP in [...] (09/11/2020): Added automatically from request for surgery [id number] Sensorineural hearing loss (SNHL) of both ears 0 06/12/2020 Dysfunction of both eustachian tubes 06/12/2020 TMJ arthralgia 06/12/2020 Microscopic hematuria 03/09/2020 Upper back pain on right side 03/02/2020 Assessment & Plan (03/02/2020 4:33 PM HEAVY TRUCK MECHANIC): Musculoskeletal Pain Assessment: Musculoskeletal in nature, likely [...] heat/ice application. - Can use Biofreeze or Helena Deary, sold over the counter, follow directions on [...] improvement he will need to go and pick up truck driver the antibiotic and begin as directed until gone. Start antibiotics after Friday if needed. General Discussion regarding Role of antibiotics: Antimicrobial therapy -- Many Upper Respiratory Infections are caused by viruses. Inappropriate use of antibiotics for viral respiratory infections can cause adverse events and contribute to development of antibiotic resistance. 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 [...] the box. Neti-pot OR Normal Saline Nose [place] in the morning and the evening at [...] Description 09/17/2024 1:20 PM CDT Office Visit [facility] [address] [place] [phone] Peng Villatoro MD Mixed hyperlipidemia (Primary Dx); Primary hypertension; Gastroesophageal reflux disease without esophagitis; Recurrent major depressive disorder, in full remission; BMI 34.0-34.9,adult 09/17/2024 [facility]phone [facility] [address] [place] [phone] Peng Villatoro MD PA ZEPBOUND 2.5MG/0.5ML (Sesay: [id number]) 09/11/2024 7:25 AM CDT - 09/11/2024 11:59 PM CDT Hospital Encounter [facility] [address] [place] [phone] Cough, unspecified type Discharge Disposition: Discharge to home or self care 09/10/2024 1:17 PM CDT - 09/10/2024 11:59 PM CDT Hospital Encounter [facility] Diagnostic Imaging [address] [place] [phone] Cough, unspecified type Discharge Disposition: Discharge to home or self care 08/27/2024 10:31 AM CDT - 08/27/2024 11:59 PM CDT Hospital Encounter [facility] [address] [place] [address] Tino Trevino MD Right hip pain (Primary Dx) Discharge Disposition: Discharge to home or self care 08/23/2024 1:15 PM CDT Office Visit [facility] [address] [phone] Vic Chen MD Obstructive sleep apnea (Primary Dx) 08/20/2024 Telephone [facility] [address] [place] [address] [place] [phone] Peng Villatoro MD PA TESTOSTERONE 25MG/2.5GM (1%) GEL (Sesay: [id number]//Status/Sent to Plan today/Drug/Testosterone 25 MG/2.5GM(1%) gel//Form/ Electronic PA Form (2017 MEPDP)/Original Claim Info/75 CALL HELP DESK/) 08/18/2024 1:45 PM CDT Office Visit [facility] Orthopaedic Surgery [address] [facility] Advanced Medicine 12th [place] [address] [place] [address] Dean Samson MD Right shoulder pain, unspecified chronicity (Primary Dx); Chronic right shoulder pain; Arthritis of right shoulder 08/18/2024 1:06 PM CDT - 08/18/2024 11:59 PM CDT Hospital Encounter [facility] [address] [place] [address] Right shoulder pain, unspecified chronicity Discharge Disposition: Discharge to home or self care 08/13/2024 11:00 AM CDT Office Visit [facility] Orthopaedic Surgery [address] [facility] Medical Office Building [address] [place] [phone] Jenny Martinez NP Hip pain, right (Primary Dx); Right hip pain 08/13/2024 10:27 AM CDT - 08/13/2024 11:59 PM CDT Hospital Encounter [facility] [address] [facility] [address] [place] [phone] Hip pain, right Discharge Disposition: Discharge to home or self care 08/06/2024 1:20 PM CDT Office Visit [facility] Department of Otolaryngology Head-Neck Division [address] [facility] Floor 5 [place] [phone] Janell Delaney PA Laryngopharyngeal reflux (LPR) (Primary Dx) 07/21/2024 Telephone [facility] Metabolic Weight Management [address] [place] [address] Medical Office Building 4, [address] [place] [phone] Beba Ridley CMA Soonreshma Appt. from Last [...] on file Legal Sex Male 2:13 AM HEAVY TRUCK MECHANIC Gender Identity Male 02/08/2020 2:48 PM HEAVY TRUCK MECHANIC Sexual Orientation Straight 02/08/2020 2: 48 PM HEAVY TRUCK MECHANIC Obstetrics History Last Filed Vital Signs Vital [...] history exists Medical Devices Implanted Type Area De Icer Element Winder Device Identifier Shelf Expiration Date Model / Serial / Lot [employer],Gastric Clip,Resolution 360 Ultra Stomach Musculoskeletal Transplant [id number] Frozen Spine 7d Lordotic Trapezoid Spacer Allograft [id number] - [id number] - [id number] Implanted:Qty: 1 on 03/24/2024 by Roel Toro MD at [facility] N/A: Spine Cervical Musculoskeletal Transplant 01/07/2028 [id number] / [id number] / Musculoskeletal Transplant [id number] Freeze Dried Spine 7d Lordotic Trapezoid Spacer 787556 - [id number] - [id number] Implanted:Qty: 1 on 03/24/2024 by Roel Toro MD at [facility] N/A: Spine Cervical Musculoskeletal Transplant 01/11/2026 [id number] / [id number] / Musculoskeletal Transplant [id number] Frozen Spine 7d Lordotic Trapezoid Spacer Allograft 415854 - [id number] - [id number] Implanted:Qty: 1 on 03/24/2024 by Roel Toro MD at [facility] N/A: Spine Cervical Musculoskeletal Transplant 05/24/2028 [id number] / [id number] / [employer] Maxan 48mm Level 3 Spine Cervical Anterior Plate Bone Titanium 14-377544 - [id number] Implanted:Qty: 1 on 03/24/2024 by Roel Toro MD at [facility] N/A: Spine Cervical [employer] [id number] 8 / / [employer] 4mm 16mm Fix Screw Bone 14-674976 - [id number] Implanted:Qty: 6 on 03/24/2024 by Roel Toro MD at [facility] N/A: Spine Cervical [employer] [id number] 6 / / [employer] 4.5mm 16mm Fix Screw Bone 14-700515 - [id number] Implanted:Qty: 2 on 03/24/2024 by Roel Toro MD at [facility] N/A: Spine Cervical [employer] [id number] 6 / / Explanted Type Area De Icer Element Winder Device Identifier Shelf Expiration Date Model / Serial / Lot [employer] 4mm 16mm Fix Screw Bone [id number] - [id number] Explanted:Qty: 1 on 03/24/2024 by Roel Toro MD at [facility] N/A: Spine Cervical [employer] [id number] / / Procedures Procedure Name Priority Date/Time Associated Diagnosis Comments AEROBIC CULTURE AND GRAM STAIN Routine 09/11/2024 7:00 AM CDT Cough, unspecified type XR CHEST PA LATERAL 2 VIEWS Schedule Routine, Read Routine (OP Routine) 09/10/2024 1:29 PM CDT Cough, unspecified type FLUORO GUIDED INJECTION HIP RIGHT Schedule Routine, Read Routine (OP Routine) 08/27/2024 11:22 AM CDT Right hip pain [place] ARTHROCENTESIS ASPIR&/INJ MAJOR JT/BURSA W/O US Routine [...] and read back by: Charmaine Desai MT ([phone]) on 09/11/2024 12:06:45 by: Bryan Levin MLS Comment:Testing performed by : [facility], [address] [place]., [address] Report Final Report: This is the final report. KEYONNA Comment:Testing performed by : [facility], [address] [place] [address]., [id number] Sputum (Sputum) 09/11/2024 7 :00 AM CDT 09/11/2024 11:09 AM CDT Narrative KEYONNA PATTEN - 09/12/2024 8:16 AM CDT With susceptibility Testing performed by [facility] Microbiology Laboratory ([phone]) Specimens submitted from normally sterile body sites [...] - GENERA L ORDERABLES Final Result KEYONNA [address] [facility] Department [place] [address] * X-ray chest 2 views [...] hilar contours appear normal. LINES/TUBES: None. BONES: Qppf-yl-bjxqirze multilevel spondylosis thoracic spine. Cervical fusion plate new in the interval partially visualized. IMPRESSION: No acute findings or infiltrate. THIS IS AN ELECTRONICALLY VERIFIED FINAL REPORT 09/12/2024 1:30 PM - Electronically signed by Anthony FIELDS: DIAMOND Report ID: [id number] Reading Location: [id number] Procedure Note Anthony Simental MD - 09/12/2024 [...] andhilar contours appear normal. LINES/TUBES: None. BONES: Hkbk-qt-bjcqilzu multilevel spondylosis thoracic spine. Cervical fusion plate new in the interval partially visualized. IMPRESSION: No acute findings or infiltrate. THIS IS AN ELECTRONICALLY VERIFIED FINAL REPORT 09/12/2024 1:30 PM - Electronically signed by Anthony FIELDS: DIAMOND Report ID: [id number] Reading Location: [id number] us Vic Chen MD IMG XR PROCEDURES Final R esult * [place] Fluoro Guided Injection Hip Right (08/27/2024 11:22 AM CDT) Narrative [facility] - 08/27/2024 11:22 AM CDT The images from this study are not interpreted by Radiology. Please refer to the physician's procedure / OR operative note. us Jenny Martinez NP IMG FLUOROSCOPY PROCEDURE S Final Result [facility] * [place] ARTHROCENTESIS ASPIR&/INJ MAJOR JT/BURSA W/O US (08/18/2024 [...] signed by: Ana Herron MD Jenny Martinez SECTION HAND IMG XR PROCEDURES Final R esult * PSA screen (06/18/2024 10:10 AM CDT) Pathologist [facility] PSA 0.7 0.0 - 4.0 ng/mL [facility] - 01 Comment: Ruthie ECLIA methodology. According to the [place] [employer], Serum PSA should decrease and [...] - 06/19/2024 8:10 AM CDT Performed at: [address] [place] [id number] Electro Mechanical Technician: Rickey Poole PhD, Phone: [phone] Peng Villatoro MD LAB BLOOD ORDERABLES F inal Result Performing Organization Address [facility] Co de Phone Number [facility] - * Hepatitis C antibody (12/14/2018 12:18 PM CDT) Pathologist [facility] Hep C Ab Nonreactive Nonreactive [facility] Comment: Interpretive Data Positive results should be confirmed by a molecular method. If positive, a second separately collected sample should be submitted for Hepatitis C Virus (HCV) RNA Detection and Quantitation by Real-Time Reverse Carton And Can Supply Supervisor-PCR (RT-PCR). Current interpretive data was last revised on 2016. Blood specimen (specimen) 12/14/2018 12:18 PM CDT 12/14/2018 8:10 PM CDT Peng Villatoro MD LAB MICROBIOLOGY - GEN ERAL ORDERABLES Final Result Performing Organization Address [facility] Co de Phone Number [facility] [address] [place] [address] * COLONOSCOPY REPORT (04/16/2016) Anatomical Region Laterality Modality Other Narrative 04/16/2016 Ordered by an unspecified provider. us Historical Provider GI PROCEDURE ORDERABLES F inal Result from Last 3 Months or Most Recently Relevant to Health Maintenance Insurance MEDICARE [facility] [employer] LIFE MEDICARE FOR LIFE MEDICARE FOR LIFE MEDICARE FOR LIFE Advance Directives For more information, please contact: [phone] * Full Code (Latest Code Status on File) Date Activated Date Inactivated Comments 03/24/2024 8:39 PM 03/25/2024 5:11 PM * Full Code Date Activated Date Inactivated Comments 10/18/2021 1:23 PM 10/18/2021 9:04 PM * Full Code Date Activated Date Inactivated Comments 08/18/2017 11:27 AM 08/18/2017 3:46 PM Care Teams Science Education Professor Relationship Specialty Start Date End Date Peng Villatoro MD PCP - General 04/16/16 Ca Cox MD Pigment Processor Dermatology 12/09/17 Gabby Churchill MD Pension Agent Gastroenterology 12/09/17 Osmel Patel MD [address] [place] [address] Pension Agent Gastroenterology 12/09/17 Fei Barajas OD [address] [place] [address] Ophthalmology 12/09/17
[2024-10-18 09:03] LABS: Hematocrit 39.6 % (42.0-52.0); Hemoglobin 13.4 g/dL (14.0-18.0); Immature Granulocyte Percent A 0.3 % (0-0.5); Lymphocytes Absolute Auto 2.14 K/mm3 (0.9-3.2); Mean Corpuscular HGB Conc 33.8 g/dl (32-36); Mean Corpuscular Hemoglobin 32.4 pg (26-34); Mean Corpuscular Volume 95.9 fl (80-100); Nucleated Red Blood Cells Absolute Auto 0.000 K/mm3 (0.0-0.012); Nucleated Red Blood Cells Perc 0.0 % (0.0-0.2); Platelet Count Result 260 k/mm3 (150-375); Red Blood Count 4.13 M/mm3 (4.6-6.20); White Blood Count 13.4 K/mm3 (4.5-10.0)
--- NOTE | 2024-10-18 09:11 | ED.GENADULT ---
HPI - General Adult General Chief complaint: Upper Respiratory Infection Stated complaint: cough for weeks, pneumonia diag, left rib pain Time Seen by Provider: 10/18/24 07:45 Source: patient and RN notes reviewed Mode of arrival: ambulatory Limitations: no limitations History of Present Illness HPI narrative: This is a 73 year old male who presents for evaluation of left flank pain and possible pneumonia. Patient states the he developed a cough in August and he was started on antibiotics at that time. His cough continued so his PCP ordered a chest xray and sputum culture. He reports having severe left flank pain for the past week. Pain is worse with movement and coughing. He states he is unable to move or cough due to his pain. He states he is unable cough much up. He reports having temperature 99 F last night. He is diaphoretic in ER. He reports shortness of breath. He also reports he feels bloated but denies nausea, vomiting and constipation. Related Data Allergies Allergy/AdvReac Type Severity Reaction Status Date / Time No Known Allergies Allergy Verified 10/18/24 07:52 Review of Systems Constitutional: Constitutional: Denies fever(s) [facility] Past Medical History Medical History (Updated 10/18/24 @ 13:16 by Carmela Peres MD) Hypertension Surgical History Surgical History (Updated 10/18/24 @ 13:06 by Carmela Peres MD) No pertinent past surgical history Social History Social History (Updated 10/18/24 @ 13:06 by Carmela Peres MD) Substance use: never Exam Const: General: alert and diaphoretic Orientation/consciousness: patient oriented x3 Other: appears to be in pain HENMT: Head: normal to inspection Eyes: EOM: EOMs intact bilaterally Resp: Effort & Inspection: normal respiratory effort Auscultation: clear to auscultation bilaterally Cardio: Rate: regular rate Rhythm: regular rhythm Heart sounds: no murmurs GI: GI Palp: Yes Soft to palpation, Yes Tenderness to palpation present (GI) (TTP LUQ), No Guarding due to palpation present (GI) and No Rigid due to palpation Auscultation: normal bowel sounds Skin: General skin exam: normal color Neuro: General: patient oriented x3, moves all extremities and CN's II-XI intact bilaterally Extrem: General: normal to inspection Psych: Mental Status: mental status grossly normal Affect: normal affect Attitude: cooperative Course Reevaluation(s) Reevaluation #1: PAtient was able to pull up sputum culture done as outpatient showing strep pneumoniae. He was given additional pain medication at his request. Date: 10/18/24 Time: 12:57 Consultations Consultation #1: I Spoke with Kelly who is in ER. She accepts patient to service for treatment of pneumonia. Date: 10/18/24 Time: 12:40 Vital Signs Vital signs: Vital Signs Temperature 98.7 F 10/18/24 07:44 Pulse Rate 95 10/18/24 07:44 Respiratory Rate 20 10/18/24 07:44 Blood Pressure 166/85 H 10/18/24 07:44 Pulse Oximetry 97 10/18/24 07:44 Oxygen Delivery Room Air 10/18/24 07:44 Temperature 98.7 F 10/18/24 07:44 Pulse Rate 79 10/18/24 09:00 Respiratory Rate 16 10/18/24 09:00 Blood Pressure 147/70 H 10/18/24 09:00 Pulse Oximetry 93 10/18/24 09:00 Oxygen Delivery Room Air 10/18/24 07:44 Medical Decision Making MDM Narrative Medical decision making narrative: Patient reports having cough for 3 months and worsening left flank pain and shortness of breath. labs, chest xray ordered to assess for pneumonia. labs show leukocytosis with elevated wbc 13. CTA chest abdomen and pelvis ordered given chest xray with no significant finds and pain with severe pain, diaphoresis. HE was also given morphine 4 mg IV for pain twice. CTA shows pneumonia and no abdominal findings. He is agreeable to be admitted for IV antibiotics for pneumonia and pain control. Differential Diagnosis Differential Diagnosis: pneumonia, pneumothorax, rib fracture, pleurisy, UTI, pyelonephritis Vital Signs Vital Signs: Vital Signs Temperature 98.7 F 10/18/24 07:44 Pulse Rate 95 10/18/24 07:44 Respiratory Rate 20 10/18/24 07:44 Blood Pressure 166/85 H 10/18/24 07:44 Pulse Oximetry 97 10/18/24 07:44 Oxygen Delivery Room Air 10/18/24 07:44 Temperature 98.7 F 10/18/24 07:44 Pulse Rate 79 10/18/24 09:00 Respiratory Rate 16 10/18/24 09:00 Blood Pressure 147/70 H 10/18/24 09:00 Pulse Oximetry 93 10/18/24 09:00 Oxygen Delivery Room Air 10/18/24 07:44 Lab Data Lab results reviewed: Yes I reviewed the patient's lab results. 10/18/24 08:51 10/18/24 08:51 Labs: Lab Results 10/18/24 10/18/24 Range/Units 08:51 09:50 WBC 13.4 H (4.5-10.0) K/mm3 RBC 4.13 L (4.6-6.20) M/mm3 Hgb 13.4 L (14.0-18.0) g/dL Hct 39.6 L (42.0-52.0) % MCV 95.9 (80-100) fl MCH 32.4 (26-34) pg MCHC 33.8 (32-36) g/dl RDW 13.0 (11.5-14.5) % Plt Count 260 (150-375) k/mm3 MPV 9.5 (7.4-10.4) fl Immature Gran % (Auto) 0.3 (0-0.5) % Neut % (Auto) 73.3 H (45.5-73.1) % Lymph % (Auto) 15.9 L (18.3-44.2) % Moody % (Auto) 8.9 H (2.6-8.5) % Eos % (Auto) 1.0 (0-4.4) % Baso % (Auto) 0.6 (0.2-1.2) % Lymph # (Auto) 2.14 (0.9-3.2) K/mm3 Moody # (Auto) 1.2 H (0.1-0.6) K/mm3 Eos # (Auto) 0.1 (0-0.3) K/mm3 Baso # (Auto) 0.1 (0.0-0.1) K/mm3 Abs Immat Gran (auto) 0.04 H (0.00-0.031) K/mm3 Absolute Neuts (auto) 9.9 H (1.3-6.7) K/mm3 Absolute Nucleated RBC 0.000 (0.0-0.012) K/mm3 Nucleated RBC % 0.0 (0.0-0.2) % PT 13.6 (11.1-14.7) Seconds INR 1.0 APTT 26.3 (22.3-36.8) Seconds Sodium 133 L (137-145) mmol/L Potassium 4.0 (3.4-5.0) mmol/L Chloride 105 (98-107) mmol/L Carbon Dioxide 23 (22-30) mmol/L Anion Gap 5 (4-12) mmol/L BUN 11 (9-20) mg/dL Creatinine 1.03 (0.7-1.3) mg/dL Estim Creat Clear Calc 61 ml/min Estimated GFR > 60 (59 - ) Glucose 106 (65-110) mg/dL Lactic Acid 1.0 (0.7-2.0) mmol/L Calcium 8.9 (8.4-10.2) mg/dL Magnesium 1.8 (1.6-2.3) mg/dL Total Bilirubin 1.5 H (0.2-1.3) mg/dL AST 50 (17-59) U/L ALT 23 (6-50) U/L Alkaline Phosphatase 70 (38-126) U/L Total Protein 6.9 (6.3-8.2) g/dL Albumin 3.7 (3.5-5.1) g/dL Lipase 22 L (23-300) U/L Urine Color Yellow (Yellow) Urine Appearance Clear (Clear) Urine pH 7.0 (5.0-9.0) Ur Specific [place] 1.021 (1.001-1.035) Urine Protein Negative (Negative) mg/dL Urine Glucose (UA) Negative (Negative) mg/dL Urine Ketones Trace H (Negative) mg/dL Ur Blood (Man) Non-hemolyzed trace (Negative) Urine Nitrate Negative (Negative) Urine Bilirubin Negative (Negative) Urine Urobilinogen 1.0 (<2.0) mg/dL Leukocyte Esterase Rfl 1+ H (Negative) RINKU/UL Urine RBC 3-5 H (0-2) /hpf Urine WBC 6-10 H (0-3) /hpf Ur Squamous Epith Cells None seen (Few) /hpf Urine Bacteria None seen /hpf Urine Casts 0-2 Imaging Data Radiologist's impression: ITS Impressions Chest X-Ray 10/18/24 09:42 IMPRESSION: Small left-sided pleural effusion with adjacent compressive atelectasis. Redemonstration of a multilobulated asymmetry within the left upper lobe, increased in size from 2010 with tenting of the adjacent pleura. Unless this is a known finding, cross-sectional imaging is recommended. Chest/Abdomen/Pelvis CTA 10/18/24 10:10 IMPRESSION: 1. ECG Data EKG #1: Attestation: I personally reviewed and interpreted this ECG as follows: ECG completion date: 10/18/24 ECG completion time: 09:10 EKG Interpretation: normal rate (79), sinus rhythm, normal QT and NL axis Critical Care Time Critical Care Time Critical Care Time: Yes Total Critical Care Time: 35 Discharge Plan Discharge Clinical Impression: Pneumonia Qualifiers: Laterality: left Lung location: lower lobe of lung Patient Disposition: Still a Patient Condition: Stable Patient Language: Turkish Follow-up/Referrals: Irving,Peng Siddiqui MD [Primary Care Provider] -
[2024-10-18 09:13] LABS: INR 1.0; Partial Thromboplastin Time 26.3 Seconds (22.3-36.8); Prothrombin Time 13.6 Seconds (11.1-14.7)
[2024-10-18 09:19] LABS: Alanine Aminotransferase 23 U/L (6-50); Albumin Level 3.7 g/dL (3.5-5.1); Alkaline Phosphatase 70 U/L (38-126); Anion Gap 5 mmol/L (4-12); Aspartate Amino Transferase 50 U/L (17-59); Bilirubin,Total 1.5 mg/dL (0.2-1.3); Blood Urea Nitrogen 11 mg/dL (9-20); Calcium 8.9 mg/dL (8.4-10.2); Carbon Dioxide 23 mmol/L (22-30); Chloride 105 mmol/L (98-107); Estimated CRCL calculation 61 ml/min; Estimated Glomerular Filt Rate > 60; Glucose 106 mg/dL (65-110); Lipase 22 U/L (23-300); Magnesium 1.8 mg/dL (1.6-2.3); Potassium 4.0 mmol/L (3.4-5.0); Sodium 133 mmol/L (137-145); Total Protein 6.9 g/dL (6.3-8.2)
[2024-10-18] MEDS: ONDANSETRON INJ 4 MG/2 ML VIAL IV PUSH (09:49)
[2024-10-18] MEDS: MORPHINE SULFATE (*CRX) 4 MG/ML INJ IV PUSH (09:51)
[2024-10-18 10:12] LABS: Add Urine Microscopic? YES; Appearance Urine Clear (Clear); Glucose Urine UA Negative (Negative); Leukocyte Esterase Ur 1+ LEU/UL (Negative); Nitrate Urine Negative (Negative); Non Pathogenic Casts 0-2; Specific Grav Ur 1.021 (1.001-1.035)
[2024-10-18] MEDS: cefTRIAXone 1 GM in SODIUM CHLORIDE 0.9% IV 50 ML 100 ML IVPB (11:42)
[2024-10-18] MEDS: AZITHROMYCIN IV 500 MG in SODIUM CHLORIDE 0.9% IV 250 ML IVPB (13:02)
[2024-10-18] MEDS: HYDROcodone/acetaminophen (*CRX) 5-325 MG TABLET 1 TAB PO ×2 (13:08→18:26)
--- NOTE | 2024-10-18 13:16 | PM.IMHP ---
H&P: HPI History of Present Illness Date/Time: 10/18/24 13:16 Chief Complaint: Cough, Chest Wall Pain Narrative: 73 y/o M with PMH of HTN, HLD and GERD presents here with a cough and chest wall pain. The patient presents here from home on 10/18 for ongoing cough and chest wall pain. The patient reports an ongoing cough for the last 6 weeks. He has previously been evaluated and diagnosed with pneumonia based off a sputum culture. Outside medication data shows patient was prescribed Amoxicillin on 07/27, then placed on Amoxicillin and Keflex on 08/10, then later put on a Doxycycline course on 09/10. Because his symptoms were not resolving, this had prompted the sputum culture. He reports the culture grew Staphylococcus that was pansensitive. He follows with a occasional caregiver with [facility] [place]. Here now for re-evaluation as he has developed left lower chest wall/rib pain. He reports the pain is sharp, worsens with movement or coughing, and has been present for the past 10 days. He reports the pain has been so bad that it almost stops his cough because of the severity. He denies midsternal chest pain/anterior chest pain, nausea, vomiting, diarrhea, fever, or chills. He denies previous history of smoking. He denies any choking or dysphagia episodes. Initial VS at presentation: 98.7? F, HR 95, R 20, 166/85, and 97% on RA. ED workup showed: WBC 13.4, hemoglobin 13.4, normal coags, sodium 133, creatinine 1.03 and GFR >60, glucose 106, lactic 1.0, total bilirubin 1.5 with normal AST/ALT, and UA showed trace ketones/1+ leuk esterase/3-5 RBC/6-10 WBC. CXR showed a small left-sided pleural effusion with adjacent compressive atelectasis, region menstruation of multilobulated asymmetry within the left upper lobe increased in size from 20/01. Chest/abdomen/pelvis CTA showed no PE, aspiration/and or pneumonia in the left lower lobe and dependent lung will a and no acute intra-abdominal/pelvic process. EKG showed sinus rhythm, rate 79, delayed precordial R/S transition, consider inferior infarct age indeterminate. Review of Systems Review of Systems: All systems reviewed & are unremarkable except as noted in HPI and below PMFSH Past Medical History Medical History Basal cell carcinoma [place] (hard of hearing) Arthritis Migraine Asthma Sleep apnea GERD (gastroesophageal reflux disease) HLD (hyperlipidemia) Hypertension Surgical History Surgical History History of spinal surgery Social History Social History Smoking status: Never smoker Alcohol intake: current Drinks per week: 7 Substance use: never Substance use type: does not use Lack of Transportation: No Lack of Food: Never True Current Housing: I Have Housing Concerned About Future Housing: No Difficulty Paying Gas/Electric Bills: No Difficulty Paying for Meds: No Currently Unemployed: No Education: Master's Degree or Higher Difficulty w/ Childcare or Family Care: No Spiritual care concerns: No Meds Home Medications and Allergies Home Medications ?Medication ?Instructions ?Recorded ?Confirmed ?Type acetaminophen 325 mg tablet (Aphen) 650 mg PO QID PRN pain 10/18/24 10/18/24 History fluticasone propionate 230 2 inh inhalation BID 10/18/24 10/18/24 History mcg-salmeterol 21 mcg/actuation HFA inhaler ibuprofen 200 mg tablet (Addaprin) 400 mg PO Q6H PRN pain 10/18/24 10/18/24 History losartan 50 mg tablet 50 mg PO DAILY 10/18/24 10/18/24 History montelukast 10 mg tablet 10 mg PO QPM 10/18/24 10/18/24 History (Singulair) omeprazole 40 mg capsule,delayed 40 mg PO QPM 10/18/24 10/18/24 History release pravastatin 20 mg tablet 20 mg PO HS 10/18/24 10/18/24 History tamsulosin 0.4 mg capsule 0.4 mg PO DAILY 10/18/24 10/18/24 History testosterone 1 % (25 mg/2.5 gram) 1 packet topical DAILY 10/18/24 10/18/24 History transdermal gel packet vibryn 20 mg PO DAILY 10/18/24 10/18/24 History Allergies Allergy/AdvReac Type Severity Reaction Status Date / Time No Known Allergies Allergy Verified 10/18/24 07:52 Vital Signs Vital Signs - 24 hr 10/18/24 07:44 10/18/24 08:00 10/18/24 08:30 Temperature 98.7 F Pulse Rate 95 85 82 Respiratory Rate 20 17 16 Blood Pressure 166/85 H 135/70 143/71 H Pulse Oximetry 97 93 94 Oxygen Delivery Room Air 10/18/24 09:00 Temperature Pulse Rate 79 Respiratory Rate 16 Blood Pressure 147/70 H Pulse Oximetry 93 Oxygen Delivery Exam Const: General: comfortable and no acute distress Other: , male, elderly, nontoxic appearance HENMT: Face/Nose/Sinus: Normal nares present Mouth: Yes moist mucous membranes Eyes: General: appearance normal, both eyes and all related structures Sclera: sclerae normal Pupils: Equal, round and reactive pupils present EOM: EOMs intact bilaterally Chest: Other: Tenderness to the anterior/lower chest wall along patient's lower ribcage. No deformities or edema noted. Resp: Effort & Inspection: normal respiratory effort Auscultation: clear to auscultation bilaterally Cardio: Rate: regular rate Rhythm: regular rhythm Other: S1-S2 present without murmur, rub, ectopy GI: Other: Abdomen soft, nondistended, nontender. Normoactive bowel sounds in all quadrants. Skin: General skin exam: normal color and no rashes or lesions noted Wounds: no wounds Neuro: Speech: normal speech Motor exam (neuro): 5/5 motor strength present throughout Sensory Exam: normal sensation Other: A&O x4 Extrem: General: normal to inspection Psych: Mental Status: mental status grossly normal Affect: normal affect Other: Good insight and judgment, very pleasant H&P: Results Labs Labs: Short CBC 10/18/24 Range/Units 08:51 WBC 13.4 H (4.5-10.0) K/mm3 Hgb 13.4 L (14.0-18.0) g/dL Hct 39.6 L (42.0-52.0) % Plt Count 260 (150-375) k/mm3 BMP 10/18/24 08:51 Sodium 133 L Potassium 4.0 Chloride 105 Carbon Dioxide 23 BUN 11 Creatinine 1.03 Glucose 106 Calcium 8.9 Liver Function 10/18/24 Range/Units 08:51 Total Bilirubin 1.5 H (0.2-1.3) mg/dL AST 50 (17-59) U/L ALT 23 (6-50) U/L Alkaline Phosphatase 70 (38-126) U/L Albumin 3.7 (3.5-5.1) g/dL Urine 10/18/24 Range/Units 09:50 Urine Color Yellow (Yellow) Urine Appearance Clear (Clear) Urine pH 7.0 (5.0-9.0) Ur Specific [place] 1.021 (1.001-1.035) Urine Protein Negative (Negative) mg/dL Urine Glucose (UA) Negative (Negative) mg/dL Assessment and Plan Assessment and plan (1) Pneumonia: Qualifiers: Aspiration pneumonia type: unspecified Laterality: left Lung location: lower lobe of lung Pneumonia type: aspiration pneumonia Qualified Code(s): J69.0 - Pneumonitis due to inhalation of food and vomit Code(s): J18.9 - Pneumonia, unspecified organism Status: Acute Assessment and Plan: 10/18 CXR: Small left-sided pleural effusion with adjacent compressive atelectasis. Redemonstration of a multilobulated asymmetry within the left upper lobe, increased in size from 2010 with tenting of the adjacent pleura. Unless this is a known finding, cross-sectional imaging is recommended. CTA chest/abd/pelvis: 1. No pulmonary embolism. 2. Aspiration and/or pneumonia in the left lower lobe and dependent lingula. 3. No acute intra-abdominal/pelvic process. - has been on multiple outpatient abx -> amoxicillin x2, keflex x1, and doxycycline x1 with most recent prescribed on 09/10 - possible aspiration noted on imaging, obtain ST evaluation -> no abnormalities per bedside swallow. consider further imaging if further concerns arise. - started on Vancomycin and Zosyn on 10/18 due to concerns for aspiration - check sputum culture, respiratory pathogen panel, pneumococcal, mycoplasma, Legionella, and MRSA. Patient reports recent sputum culture grew Staphylococcus sepsis pansensitive. - supportive care: Mucinex, Tessalon Perles, Tylenol, DuoNebs as needed - monitor WBC - consider pulmonology consultation if patient not improving with current treatment or no evidence of dysphagia via ST evaluation as this increases suspicion for a respiratory pathogen requiring specialist consultation (2) Hypertension: Qualifiers: Hypertension type: primary hypertension Qualified Code(s): I10 - Essential (primary) hypertension Code(s): I10 - Essential (primary) hypertension Status: Chronic Assessment and Plan: - chronic, currently 147/70 - continue home medications: Losartan - monitor (3) Sleep apnea: Code(s): G47.30 - Sleep apnea, unspecified Status: Acute Assessment and Plan: -continue home CPAP Plan Diet: Heart healthy GI Prophylaxis: N/a DVT Prophylaxis: Lovenox IV fluids: LR 100 mL/hour x1L Lines/Tubes: Peripheral IV Code Status: Full code Quality VTE Prophylaxis VTE prophylaxis: pharmacologic ordered Hospitalist MIPS Advance Care Plan I have confirmed that the patient's Advanced Care Plan is present, code status is documented, or surrogate decision maker is listed in patient medical record.: Yes Medication Reconciliation I have utilized all available resources to obtain, update and review the patients current medications (includes all prescriptions, OTC, herbals, cannabis, and nutritional supplements).: Yes
--- NOTE | 2024-10-18 14:23 | ADMGEN ---
This patient, Dada Sinclair, was admitted to [facility] Room 317-01. Patient/family oriented to hospital policies and general routines including ID bracelet, bed and alarms, visiting hours, pain management, procedures, bathroom and other care routines, personal items, smoking policy, room service/diet, and visiting hours. Information on how to activate the Rapid Response Team has been discussed. Patient/Family are encouraged to report perceived risks to care and to ask questions if they do not understand what they are told or what they should do.
--- NOTE | 2024-10-18 14:52 | PCSTNOTE ---
Please refer to the Bedside Swallow Evaluation in the EMR. Please note, silent aspiration cannot be ruled out at bedside.
[2024-10-18] MEDS: LACTATED RINGERS 1,000 ML 100 ML IV CONT ×2 (15:31→20:34)
[2024-10-18] MEDS: PIPERACILLIN/TAZOBACTAM SOD 4.5 GM in SODIUM CHLORIDE 0.9% IV 100 ML 200 ML IVPB ×2 (15:31→20:23)
[2024-10-18] MEDS: VANCOMYCIN 1,250 MG/NS 250 ML 1,250 MG/250 ML BAG 166.67 MG IVPB ×2 (16:18→17:47)
[2024-10-18 17:51] LABS: MRSA (PCR) NOT DETECTED (NOT DETECTE)
[2024-10-18] MEDS: guaiFENesin 12 HR 600 MG TABCR PO (21:21)
[2024-10-18] MEDS: MORPHINE SULFATE (*CRX) 2 MG/ML INJ IV PUSH (21:40)
[2024-10-19] VITALS (11 sets, daily range): BP systolic 109–146; BP diastolic 57–72; PULSE 63–81; RESP 12–22; TEMP 35.9–36.9; O2SAT 93–96
[2024-10-19] MEDS: PIPERACILLIN/TAZOBACTAM SOD 4.5 GM in SODIUM CHLORIDE 0.9% IV 100 ML 200 ML IVPB ×4 (02:38→20:33)
[2024-10-19] MEDS: MORPHINE SULFATE (*CRX) 2 MG/ML INJ IV PUSH ×2 (02:47→09:14)
[2024-10-19] MEDS: ONDANSETRON INJ 4 MG/2 ML VIAL IV PUSH (02:47)
[2024-10-19 06:08] LABS: Hematocrit 38.1 % (42.0-52.0); Hemoglobin 12.6 g/dL (14.0-18.0); Immature Granulocyte Percent A 0.5 % (0-0.5); Lymphocytes Absolute Auto 1.87 K/mm3 (0.9-3.2); Mean Corpuscular HGB Conc 33.1 g/dl (32-36); Mean Corpuscular Hemoglobin 32.2 pg (26-34); Mean Corpuscular Volume 97.4 fl (80-100); Nucleated Red Blood Cells Absolute Auto 0.000 K/mm3 (0.0-0.012); Nucleated Red Blood Cells Perc 0.0 % (0.0-0.2); Platelet Count Result 237 k/mm3 (150-375); Red Blood Count 3.91 M/mm3 (4.6-6.20); White Blood Count 9.8 K/mm3 (4.5-10.0)
[2024-10-19 06:36] LABS: Alanine Aminotransferase 24 U/L (6-50); Albumin Level 3.5 g/dL (3.5-5.1); Alkaline Phosphatase 63 U/L (38-126); Anion Gap 6 mmol/L (4-12); Aspartate Amino Transferase 48 U/L (17-59); Bilirubin,Total 1.3 mg/dL (0.2-1.3); Blood Urea Nitrogen 10 mg/dL (9-20); Calcium 8.5 mg/dL (8.4-10.2); Carbon Dioxide 23 mmol/L (22-30); Chloride 105 mmol/L (98-107); Estimated CRCL calculation 61 ml/min; Estimated Glomerular Filt Rate > 60; Glucose 99 mg/dL (65-110); Potassium 4.0 mmol/L (3.4-5.0); Sodium 134 mmol/L (137-145); Total Protein 6.5 g/dL (6.3-8.2)
--- NOTE | 2024-10-19 07:19 | PM.IMPN ---
Progress Note: A&P Assessment and Plan (1) Pneumonia: Qualifiers: Aspiration pneumonia type: unspecified Laterality: left Lung location: lower lobe of lung Pneumonia type: aspiration pneumonia Qualified Code(s): J69.0 - Pneumonitis due to inhalation of food and vomit Code(s): J18.9 - Pneumonia, unspecified organism Status: Acute Assessment and Plan: CXR: Small left-sided pleural effusion with adjacent compressive atelectasis. Redemonstration of a multilobulated asymmetry within the left upper lobe, increased in size from 2010 with tenting of the adjacent pleura. Unless this is a known finding, cross-sectional imaging is recommended. CTA chest/abd/pelvis: 1. No pulmonary embolism. 2. Aspiration and/or pneumonia in the left lower lobe and dependent lingula. 3. No acute intra-abdominal/pelvic process. has been on multiple outpatient abx -> amoxicillin x2, keflex x1, and doxycycline x1 with most recent prescribed on 09/10 possible aspiration noted on imaging, obtain ST evaluation -> no abnormalities per bedside swallow. consider further imaging if further concerns arise. started on Vancomycin and Zosyn on 10/18 due to concerns for aspiration check sputum culture, respiratory pathogen panel, pneumococcal, mycoplasma, Legionella, and MRSA. Patient reports recent sputum culture grew Staphylococcus sepsis pansensitive. supportive care: Mucinex, Tessalon Perles, Tylenol, DuoNebs as needed monitor WBC consider pulmonology consultation if patient not improving with current treatment or no evidence of dysphagia via ST evaluation as this increases suspicion for a respiratory pathogen requiring specialist consultation Serum mycoplasma IgM, urine Legionella/pneumococcal, respiratory pathogen panel pending (2) Hypertension: Qualifiers: Hypertension type: primary hypertension Qualified Code(s): I10 - Essential (primary) hypertension Code(s): I10 - Essential (primary) hypertension Status: Chronic Assessment and Plan: chronic, currently 147/70 continue home medications: Losartan monitor (3) Sleep apnea: Code(s): G47.30 - Sleep apnea, unspecified Status: Acute Assessment and Plan: continue home CPAP Plan Diet: Heart healthy GI Prophylaxis: N/a DVT Prophylaxis: Lovenox IV fluids: LR 100 mL/hour x1L Lines/Tubes: Peripheral IV Code Status: Full code Subjective Date/time seen: 10/19/24 07:19 Interval history: 73 y/o M with PMH of HTN, HLD and GERD presents here with a cough and chest wall pain. 10/19/2024 Patient sitting comfortably in bed at time of examination. Denies any chest pain, shortness of breath, or nausea/vomiting at this time. Still endorses a periodically cough with lower chest wall tenderness but at rest states he feels fine. Pulmonology consulted regarding persistent pneumonia, agree with monitoring sputum culture/respiratory pathogen panel and continuing with Zosyn and azithromycin for now. Serum mycoplasma IgM/urine Legionella ordered and pending. Patient otherwise feels fine and has no complaints, remains afebrile without leukocytosis. Review of Systems Review of Systems: All systems reviewed & are unremarkable except as noted in HPI and below Exam Const: General: comfortable and no acute distress Other: , male, elderly, nontoxic appearance HENMT: Face/Nose/Sinus: Normal nares present Mouth: Yes moist mucous membranes Eyes: General: appearance normal, both eyes and all related structures Sclera: sclerae normal Pupils: Equal, round and reactive pupils present EOM: EOMs intact bilaterally Chest: Other: Tenderness to the anterior/lower chest wall along patient's lower ribcage. No deformities or edema noted. Resp: Effort & Inspection: normal respiratory effort Auscultation: clear to auscultation bilaterally Cardio: Rate: regular rate Rhythm: regular rhythm Other: S1-S2 present without murmur, rub, ectopy GI: Other: Abdomen soft, nondistended, nontender. Normoactive bowel sounds in all quadrants. Skin: General skin exam: normal color and no rashes or lesions noted Wounds: no wounds Neuro: Cranial nerves: Yes Equal, round and reactive pupils present Speech: normal speech Motor exam (neuro): 5/5 motor strength present throughout Sensory Exam: normal sensation Other: A&O x4 Extrem: General: normal to inspection Psych: Mental Status: mental status grossly normal Affect: normal affect Other: Good insight and judgment, very pleasant Objective Data Vital Signs Vital Signs: Vital Signs - 24 hr 10/18/24 07:44 10/18/24 07:45 10/18/24 08:00 Temperature 98.7 F Pulse Rate 95 85 Respiratory Rate 20 17 Blood Pressure 166/85 H 135/70 Pulse Oximetry 97 96 93 Oxygen Delivery Room Air Room Air 10/18/24 08:30 10/18/24 09:00 10/18/24 10:12 Temperature Pulse Rate 82 79 93 Respiratory Rate 16 16 18 Blood Pressure 143/71 H 147/70 H Pulse Oximetry 94 93 94 Oxygen Delivery 10/18/24 10:15 10/18/24 10:30 10/18/24 10:45 Temperature Pulse Rate 88 85 88 Respiratory Rate 18 15 20 Blood Pressure Pulse Oximetry 93 92 92 Oxygen Delivery 10/18/24 11:00 10/18/24 11:15 10/18/24 11:56 Temperature Pulse Rate 84 82 75 Respiratory Rate 25 H 19 15 Blood Pressure Pulse Oximetry 93 94 Oxygen Delivery 10/18/24 12:05 10/18/24 12:15 10/18/24 12:16 Temperature Pulse Rate 74 76 78 Respiratory Rate 22 H 18 23 H Blood Pressure 126/66 Pulse Oximetry Oxygen Delivery 10/18/24 12:39 10/18/24 12:45 10/18/24 12:47 Temperature Pulse Rate 87 81 78 Respiratory Rate 21 H 20 21 H Blood Pressure 165/73 H Pulse Oximetry 95 93 93 Oxygen Delivery 10/18/24 13:00 10/18/24 15:00 10/18/24 20:00 Temperature 97.7 F Pulse Rate 75 68 Respiratory Rate 17 20 Blood Pressure 158/67 H Pulse Oximetry 93 Oxygen Delivery Room Air 10/18/24 21:21 10/19/24 00:47 10/19/24 02:43 Temperature Pulse Rate 81 Respiratory Rate 17 16 Blood Pressure Pulse Oximetry 96 96 Oxygen Delivery Autopap Autopap Autopap 10/19/24 04:10 Temperature 96.7 F L Pulse Rate 68 Respiratory Rate 18 Blood Pressure 140/68 Pulse Oximetry 95 Oxygen Delivery Intake/Output Intake/Output: Intake & Output 10/16/24 10/17/24 10/18/24 10/19/24 23:59 23:59 23:59 23:59 Intake Total 1148.3 500 Balance 1148.3 500 Meds/Results Medications: Active Medications Generic Name Dose Route Start Last Admin Trade Name Freq PRN Reason Stop Dose Admin Acetaminophen 650 mg 10/18/24 12:28 Acetaminophen 325 Mg Tablet PO Q4H PRN Mild Pain (1-3) or Fever Hydrocodone Bitart/Acetaminophen 1 tab 10/18/24 12:28 10/18/24 18:26 Hydrocodone/Acetaminophen (*Crx) 5-325 Mg Tablet PO 1 tab Q4H PRN Administration Pain Rated 4-6 Albuterol/Ipratropium 3 ml 10/18/24 13:31 Ipratropium 0.5 Mg/Albuterol Sulfate 2.5 Mg Ampul.Neb 3 Ml INHALATION Q6HRT PRN Shortness Of Breath Or Wheezing Benzonatate 100 mg 10/18/24 13:31 Benzonatate 100 Mg Capsule PO TID PRN Cough Enoxaparin Sodium 40 mg 10/19/24 09:00 Enoxaparin 40 Mg/0.4 Ml Syringe SUB-Q DAILY [facility] Guaifenesin 600 mg 10/18/24 21:00 10/18/24 21:21 Guaifenesin 12 Hr 600 Mg Tabcr PO 600 mg Q12HR [facility] Administration Piperacillin Sod/Tazobactam 100 mls @ 200 mls/hr 10/18/24 14:00 10/19/24 03:08 Sod 4.5 gm/ Sodium Chloride IVPB Infused Q6H [facility] Infusion Vancomycin HCl 1,500 mg in 500 mls @ 250 mls/hr 10/19/24 10:00 Vancomycin 1,500 Mg/Ns 500 Ml IVPB Q18H [facility] Ibuprofen 400 mg 10/19/24 00:03 Ibuprofen 400 Mg Tablet PO Q6H PRN Pain Rated 1-3 Lidocaine 1 patch 10/19/24 09:00 Lidocaine 5% Patch TRANSDERM DAILY [facility] Losartan Potassium 50 mg 10/19/24 09:00 Losartan Potassium 50 Mg Tablet PO DAILY [facility] Montelukast Sodium 10 mg 10/19/24 18:00 Montelukast Sodium 10 Mg Tablet PO QPM [facility] Morphine Sulfate 2 mg 10/18/24 12:28 10/19/24 02:47 Morphine Sulfate (*Crx) 2 Mg/Ml Inj IV PUSH 2 mg Q2H PRN Administration Pain Rated 7-10 Ondansetron HCl 4 mg 10/18/24 12:28 10/19/24 02:47 Ondansetron Inj 4 Mg/2 Ml Vial IV PUSH 4 mg Q4H PRN Administration Nausea Pantoprazole Sodium 40 mg 10/19/24 09:00 Pantoprazole 40 Mg Tablet PO BID BRAIN Polyethylene Glycol 17 gm 10/18/24 13:35 Polyethylene Glycol 3350 17 Gm Powd.Pack PO QAM PRN Constipation Pravastatin Sodium 20 mg 10/19/24 21:00 Pravastatin Sodium 20 Mg Tablet PO HS [facility] Fluticasone/Salmeterol 2 puff 10/19/24 08:00 Fluticasone/Salmeterol 230-21 Mcg Inhaler 1 Puff INHALATION Q12HRT [facility] Tamsulosin HCl 0.4 mg 10/19/24 09:00 Tamsulosin Hcl 0.4 Mg Capsule PO DAILY [facility] Radiology Results: ITS Impressions Chest X-Ray 10/18/24 09:42 IMPRESSION: Small left-sided pleural effusion with adjacent compressive atelectasis. Redemonstration of a multilobulated asymmetry within the left upper lobe, increased in size from 2010 with tenting of the adjacent pleura. Unless this is a known finding, cross-sectional imaging is recommended. Chest/Abdomen/Pelvis CTA 10/18/24 10:10 IMPRESSION: 1. ADDENDUM: 10/18/24 1322 CORRECTION: The report was finalized prior to assessment of the abdomen and pelvis portion of the study. The comparison, findings and impression section should read- COMPARISON: CT abdomen dated 10/05/2007 FINDINGS: Chest: No pulmonary embolism. Patchy groundglass opacities and consolidation in the left lower lobe and dependent lingula consistent with aspiration or pneumonia. A few tiny calcified nodules in the right lower lobe and a couple large calcifications in the left upper lobe consistent with old granulomatous disease. No pulmonary edema or pleural effusion. Heart size is normal. No pericardial effusion. Thoracic aorta is normal in caliber with no dissection. No pathologically enlarged thoracic lymphadenopathy. Small sliding-type hiatal hernia. Moderate thoracic spondylosis with chronic appearing mild anterior wedging of a few mid and lower thoracic vertebral bodies. Anterior plate and screw fixation for C4-C7 anterior spinal fusion with incompletely visualized on the vice president quality topogram. Abdomen/pelvis: Liver, gallbladder, pancreas, bilateral adrenal glands and right kidney are normal. 2.1 cm left renal cyst. A few small splenic calcific lesions consistent with old granulomatous disease. Bowels including the appendix are normal. Bladder is normal. Likely bilateral vasectomy clips. Lung the right spermatic cord and project over the left scrotum on the vice president quality topogram. No free intraperitoneal gas or fluid. No pathologically enlarged abdominal or pelvic lymphadenopathy. Mild lumbar spondylosis. IMPRESSION: 1. No pulmonary embolism. 2. Aspiration and/or pneumonia in the left lower lobe and dependent lingula. 3. No acute intra-abdominal/pelvic process. Labs Labs: Laboratory Results - last 24 hr 10/18/24 10/18/24 10/18/24 08:51 09:50 16:29 WBC 13.4 H RBC 4.13 L Hgb 13.4 L Hct 39.6 L MCV 95.9 MCH 32.4 MCHC 33.8 RDW 13.0 Plt Count 260 MPV 9.5 Immature Gran % (Auto) 0.3 Neut % (Auto) 73.3 H Lymph % (Auto) 15.9 L Dickenson % (Auto) 8.9 H Eos % (Auto) 1.0 Baso % (Auto) 0.6 Lymph # (Auto) 2.14 Dickenson # (Auto) 1.2 H Eos # (Auto) 0.1 Baso # (Auto) 0.1 Abs Immat Gran (auto) 0.04 H Absolute Neuts (auto) 9.9 H Absolute Nucleated RBC 0.000 Nucleated RBC % 0.0 PT 13.6 INR 1.0 APTT 26.3 Sodium 133 L Potassium 4.0 Chloride 105 Carbon Dioxide 23 Anion Gap 5 BUN 11 Creatinine 1.03 Estim Creat Clear Calc 61 Estimated GFR > 60 Glucose 106 Lactic Acid 1.0 Calcium 8.9 Magnesium 1.8 Total Bilirubin 1.5 H AST 50 ALT 23 Alkaline Phosphatase 70 Total Protein 6.9 Albumin 3.7 Lipase 22 L Urine Color Yellow Urine Appearance Clear Urine pH 7.0 Ur Specific Saffell 1.021 Urine Protein Negative Urine Glucose (UA) Negative Urine Ketones Trace H Ur Blood (Man) Non-hemolyzed trace Urine Nitrate Negative Urine Bilirubin Negative Urine Urobilinogen 1.0 Leukocyte Esterase Rfl 1+ H Urine RBC 3-5 H Urine WBC 6-10 H Ur Squamous Epith Cells None seen Urine Bacteria None seen Urine Casts 0-2 Nasal MRSA (PCR) Not detected Nasal RSV Type A (PCR) Cancelled Nasal RSV Type B (PCR) Cancelled Chlamy pneumoniae PCR Cancelled Adenovirus DNA Cancelled Human Bocavirus (ELA) Cancelled Coronavirus Type OC43 Cancelled Coronavirus Type HKU1 Cancelled Coronavirus Type 229E Cancelled Coronavirus Type NL63 Cancelled Human Metapneumovir PCR Cancelled Influenza A (PCR) Cancelled Influenza A (H1) RNA Cancelled Influenza A (H3) PCR Cancelled M. pneumoniae DNA Cancelled Parainfluenza PCR Cancelled Parainfluenza 2 (PCR) Cancelled Parainfluenza 3 RNA (PCR) Cancelled Parainfluenza 4 (PCR) Cancelled Rhino/Enterovirus (ELA) Cancelled SARS-CoV-2 RNA (RT-PCR) Cancelled Influenza Type B (PCR) Cancelled Misc Test Comment Cancelled 10/19/24 05:45 WBC 9.8 RBC 3.91 L Hgb 12.6 L Hct 38.1 L MCV 97.4 MCH 32.2 MCHC 33.1 RDW 13.0 Plt Count 237 MPV 9.3 Immature Gran % (Auto) 0.5 Neut % (Auto) 68.1 Lymph % (Auto) 19.0 Dickenson % (Auto) 9.7 H Eos % (Auto) 2.2 Baso % (Auto) 0.5 Lymph # (Auto) 1.87 Dickenson # (Auto) 1.0 H Eos # (Auto) 0.2 Baso # (Auto) 0.1 Abs Immat Gran (auto) 0.05 H Absolute Neuts (auto) 6.7 Absolute Nucleated RBC 0.000 Nucleated RBC % 0.0 PT INR APTT Sodium 134 L Potassium 4.0 Chloride 105 Carbon Dioxide 23 Anion Gap 6 BUN 10 Creatinine 1.03 Estim Creat Clear Calc 61 Estimated GFR > 60 Glucose 99 Lactic Acid Calcium 8.5 Magnesium Total Bilirubin 1.3 AST 48 ALT 24 Alkaline Phosphatase 63 Total Protein 6.5 Albumin 3.5 Lipase Urine Color Urine Appearance Urine pH Ur Specific Saffell Urine Protein Urine Glucose (UA) Urine Ketones Ur Blood (Man) Urine Nitrate Urine Bilirubin Urine Urobilinogen Leukocyte Esterase Rfl Urine RBC Urine WBC Ur Squamous Epith Cells Urine Bacteria Urine Casts Nasal MRSA (PCR) Nasal RSV Type A (PCR) Nasal RSV Type B (PCR) Chlamy pneumoniae PCR Adenovirus DNA Human Bocavirus (ELA) Coronavirus Type OC43 Coronavirus Type HKU1 Coronavirus Type 229E Coronavirus Type NL63 Human Metapneumovir PCR Influenza A (PCR) Influenza A (H1) RNA Influenza A (H3) PCR M. pneumoniae DNA Parainfluenza PCR Parainfluenza 2 (PCR) Parainfluenza 3 RNA (PCR) Parainfluenza 4 (PCR) Rhino/Enterovirus (ELA) SARS-CoV-2 RNA (RT-PCR) Influenza Type B (PCR) Misc Test Comment Quality VTE Prophylaxis VTE prophylaxis: pharmacologic ordered
[2024-10-19] MEDS: FLUTICASONE/SALMETEROL 230-21 MCG INHALER 1 PUFF 2 PUFF INHALATION ×2 (07:58→21:37)
[2024-10-19] MEDS: TAMSULOSIN HCL 0.4 MG CAPSULE PO (09:11)
[2024-10-19] MEDS: guaiFENesin 12 HR 600 MG TABCR PO (09:12)
[2024-10-19] MEDS: LOSARTAN POTASSIUM 50 MG TABLET PO (09:12)
[2024-10-19] MEDS: PANTOPRAZOLE 40 MG TABLET PO ×2 (09:12→17:19)
[2024-10-19] MEDS: LIDOCAINE 5% PATCH 1 PATCH TRANSDERM (09:13)
[2024-10-19] MEDS: ENOXAPARIN 40 MG/0.4 ML SYRINGE SUB-Q (09:14)
--- NOTE | 2024-10-19 10:29 | PM.CNPUL ---
Assessment and Plan Assessment and plan (1) Pneumonia: Qualifiers: Aspiration pneumonia type: unspecified Laterality: left Lung location: lower lobe of lung Pneumonia type: aspiration pneumonia Qualified Code(s): J69.0 - Pneumonitis due to inhalation of food and vomit Code(s): J18.9 - Pneumonia, unspecified organism Status: Acute Assessment and Plan: patient presents with infectious complaints including low-grade fever, pleuritic pain, cough, phlegm production, leukocytosis, MRSA nasal swab negative, CT scan of the chest with left lower lobe and lingula infiltrate consistent with pneumonia. Patient has been prescribed amoxicillin 07/27/2024, amoxicillin and Keflex on 08/10/2024 and doxycycline on 09/10/2024. Sputum culture sent at an outside hospital and patient reports the culture grew Staphlococcus that was cerda sensitive. ED physician writes patient was able to pull up sputum culture done as outpatient showing strep pneumoniae. currently MRSA swab negative. 10/19/24: Patient presented to the emergency room with left lower lobe pleuritic pain worse with movement and cough for 10 days. Denied fever, chills, rigors, choking episodes. Blood pressure 166/85, heart rate 95, respirations 20, room air saturations 97%. Lungs were clear to auscultation. White blood cell count 13.4, eosinophils 1.0%, creatinine 1.03, serum bicarbonate 23, UA with leukocyte esterase 1+, white blood cells count 6-10 and no bacteria. Chest x-ray small left pleural effusion. CT scan of the chest showed left lingular and lower lobe infiltrate. Patient started on ceftriaxone x1 dose, azithromycin, vancomycin x1 dose on 10/18 and then discontinue when MRSA nasal swab negative. Ceftriaxone discontinued and placed on Zosyn on 10/18/2024. 10/19/2024: Currently patient denies fever, chills, rigors. He says that he is 75% back to normal. The left-sided pleuritic pain is better. It is easier for him to cough. Patient is on room air with saturations 93%. He is afebrile. white blood cell count 9.8, creatinine 1.03, BNP is 124, CRP is 7.4. COVID, influenza, RSV RT PCR assay negative plan: Patient presents with pneumonia and has responded to antibiotics. Sputum culture has been Collected. Respiratory pathogen panel has been collected. Urine for pneumococcal has been ordered. Serum mycoplasma IgM has been ordered. I ordered urine for Legionella. Agree with Zosyn and azithromycin and following the patient clinically. His leukocytosis has improved to 9.8 today. if patient fails to improve and above cultures are negative will consider resistant organisms in the future. Follow-up with his garment finisher Dr. Armas in [place]. Discussed with Dr. Sepulveda, will sign off, call with questions. (2) Sleep apnea: Code(s): G47.30 - Sleep apnea, unspecified Status: Acute Assessment and Plan: patient tells me he has obstructive sleep apnea. 10/19/2024. patient wore auto PAP 5-15 with room air, he said that this was not as good as his home machine in that it forced more air in but he could tolerate this. Plan: I asked the patient if he wanted to bring his home machine in to the hospital to wear it and he said he could tolerate the hospital auto PAP. Continue auto PAP. (3) Asthma: Code(s): J45.909 - Unspecified asthma, uncomplicated Status: Acute Assessment and Plan: Patient has no wheezing on exam. I do not feel he is having an asthma exacerbation. Plan. Continue patient's home Advair 230-21 at 2 puffs q.12 hours and montelukast 10 q.day. History of Present Illness History of Present Illness Consult date: 10/19/24 Chief complaint: Pneumonia Narrative: 10/19/2024: This is a new pulmonary consult for recurrent pneumonia. 73-year-old with a history of hypertension, hyperlipidemia, GERD, sleep apnea, asthma, arthritis. Patient is followed by garment finisher at [facility] in [place], [place], Dr. Armas. Regarding his asthma is home medicine includes Advair 230-21 at 2 puffs b.i.d., montelukast 10 a day, omeprazole 40 q.p.m.. Regarding his obstructive sleep apnea he was diagnosed 3 years ago. He wears a CPAP machine the fullface mask since then and he sees Sleep Medicine Dr. Chen yearly and he has been happy with his downloads. Patient has been prescribed amoxicillin 07/27/2024, amoxicillin and Keflex on 08/10/2024 and His symptoms did not improve. He had a chest x-ray which the patient tells me was clear and a Sputum culture sent at an outside hospital that originally came back with too many squamous cells and a repeat and patient reports the culture grew strep pneumo. ED physician writes patient was able to pull up sputum culture done as outpatient showing strep pneumoniae. 10/18/2024: over the last 3 weeks the patient tells me he has had worsening cough with liu to white phlegm with no hemoptysis. Initially his breathing was the same. His symptoms progressed And he developed chills, worsening shortness of breath at rest and activity and 1 day prior to admission he had a fever to 99. patient developed worsening left-sided pleuritic chest pain. Patient presented to the emergency room with left lower lobe pleuritic pain worse with movement and cough for 10 days. Denied fever, chills, rigors, choking episodes. Blood pressure 166/85, heart rate 95, respirations 20, room air saturations 97%. Lungs were clear to auscultation. White blood cell count 13.4, eosinophils 1.0%, creatinine 1.03, serum bicarbonate 23, UA with leukocyte esterase 1+, white blood cells count 6-10 and no bacteria. Chest x-ray small left pleural effusion. CT scan of the chest showed left lingular and lower lobe infiltrate. Patient started on ceftriaxone x1 dose, azithromycin, vancomycin x1 dose on 10/18 and then discontinue when MRSA nasal swab negative. Ceftriaxone discontinued and placed on Zosyn on 10/18/2024. 10/19/2024: Currently patient denies fever, chills, rigors. He says that he is 75% back to normal. The left-sided pleuritic pain is better. It is easier for him to cough. Patient is on room air with saturations 93%. He is afebrile. white blood cell count 9.8, creatinine 1.03, BNP is 124, CRP is 7.4. patient wore auto PAP 5-15 with room air, he said that this was not as good as his home machine in that it forced more air in but he could tolerate this. DATA: 10/18/24: CT Chest abdomen and pelvis COMPARISON: CT abdomen dated 10/05/2007 FINDINGS: Chest: No pulmonary embolism. Patchy groundglass opacities and consolidation in the left lower lobe and dependent lingula consistent with aspiration or pneumonia. A few tiny calcified nodules in the right lower lobe and a couple large calcifications in the left upper lobe consistent with old granulomatous disease. No pulmonary edema or pleural effusion. Heart size is normal. No pericardial effusion. Thoracic aorta is normal in caliber with no dissection. No pathologically enlarged thoracic lymphadenopathy. Small sliding-type hiatal hernia. Moderate thoracic spondylosis with chronic appearing mild anterior wedging of a few mid and lower thoracic vertebral bodies. Anterior plate and screw fixation for C4-C7 anterior spinal fusion with incompletely visualized on the central supply assistant topogram. Abdomen/pelvis: Liver, gallbladder, pancreas, bilateral adrenal glands and right kidney are normal. 2.1 cm left renal cyst. A few small splenic calcific lesions consistent with old granulomatous disease. Bowels including the appendix are normal. Bladder is normal. Likely bilateral vasectomy clips. Lung the right spermatic cord and project over the left scrotum on the central supply assistant topogram. No free intraperitoneal gas or fluid. No pathologically enlarged abdominal or pelvic lymphadenopathy. Mild lumbar spondylosis. IMPRESSION: 1. No pulmonary embolism. 2. Aspiration and/or pneumonia in the left lower lobe and dependent lingula. 3. No acute intra-abdominal/pelvic process. Review of Systems Constitutional: Constitutional: Reports no additional constitutional complaints Eyes: Eyes: Reports no additional eye complaints ENT: Reports system reviewed and no additional complaints, except as documented Cardiovascular: Cardiovascular: Reports no additional cardiovascular complaints Respiratory: Respiratory: Reports no additional respiratory complaints Gastrointestinal: Gastrointestinal: Reports no additional gastrointestinal complaints Musculoskeletal: Musculoskeletal: Reports no additional musculoskeletal complaints Neurologic: Reports system reviewed and no additional complaints, except as documented Psychiatric: Psychiatric: Reports no additional psychiatric complaints Endocrine: Endocrine: Reports no additional endocrine complaints Hematologic/Lymphatic: Hematologic/Lymphatic: Reports no additional hematologic/lymphatic complaints Allergic/Immunologic: Allergic/Immunologic: Reports no additional allergic/immunologic complaints [facility] Past Medical History Medical History (Updated 10/19/24 @ 14:35 by Anthony Ramos MD) Basal cell carcinoma [place] (hard of hearing) Arthritis Migraine Asthma Sleep apnea GERD (gastroesophageal reflux disease) HLD (hyperlipidemia) Hypertension Surgical History Surgical History History of spinal surgery Social History Social History Smoking status: Never smoker Alcohol intake: current Drinks per week: 7 Substance use: never Substance use type: does not use Lack of Transportation: No Lack of Food: Never True Current Housing: I Have Housing Concerned About Future Housing: No Difficulty Paying Gas/Electric Bills: No Difficulty Paying for Meds: No Currently Unemployed: No Education: Master's Degree or Higher Difficulty w/ Childcare or Family Care: No Spiritual care concerns: No Meds Home Medications and Allergies Home Medications ?Medication ?Instructions ?Recorded ?Confirmed ?Type acetaminophen 325 mg tablet (Aphen) 650 mg PO QID PRN pain 10/18/24 10/18/24 History fluticasone propionate 230 2 inh inhalation BID 10/18/24 10/18/24 History mcg-salmeterol 21 mcg/actuation HFA inhaler ibuprofen 200 mg tablet (Addaprin) 400 mg PO Q6H PRN pain 10/18/24 10/18/24 History losartan 50 mg tablet 50 mg PO DAILY 10/18/24 10/18/24 History montelukast 10 mg tablet 10 mg PO QPM 10/18/24 10/18/24 History (Singulair) omeprazole 40 mg capsule,delayed 40 mg PO QPM 10/18/24 10/18/24 History release pravastatin 20 mg tablet 20 mg PO HS 10/18/24 10/18/24 History tamsulosin 0.4 mg capsule 0.4 mg PO DAILY 10/18/24 10/18/24 History testosterone 1 % (25 mg/2.5 gram) 1 packet topical DAILY 10/18/24 10/18/24 History transdermal gel packet vibryn 20 mg PO DAILY 10/18/24 10/18/24 History Allergies Allergy/AdvReac Type Severity Reaction Status Date / Time No Known Allergies Allergy Verified 10/18/24 07:52 Vital Signs Vital Signs - 24 hr 10/18/24 10:30 10/18/24 10:45 10/18/24 11:00 Temperature Pulse Rate 85 88 84 Respiratory Rate 15 20 25 H Blood Pressure Pulse Oximetry 92 92 93 Oxygen Delivery 10/18/24 11:15 10/18/24 11:56 10/18/24 12:05 Temperature Pulse Rate 82 75 74 Respiratory Rate 19 15 22 H Blood Pressure Pulse Oximetry 94 Oxygen Delivery 10/18/24 12:15 08/18/25 12:16 10/18/24 12:39 Temperature Pulse Rate 76 78 87 Respiratory Rate 18 23 H 21 H Blood Pressure 126/66 Pulse Oximetry 95 Oxygen Delivery 10/18/24 12:45 10/18/24 12:47 10/18/24 13:00 Temperature Pulse Rate 81 78 75 Respiratory Rate 20 21 H 17 Blood Pressure 165/73 H Pulse Oximetry 93 93 Oxygen Delivery 10/18/24 15:00 10/18/24 20:00 10/18/24 21:21 Temperature 36.5 C Pulse Rate 68 Respiratory Rate 20 Blood Pressure 158/67 H Pulse Oximetry 93 Oxygen Delivery Room Air Autopap 10/19/24 00:47 10/19/24 02:43 10/19/24 04:10 Temperature 35.9 C L Pulse Rate 81 68 Respiratory Rate 17 16 18 Blood Pressure 140/68 Pulse Oximetry 96 96 95 Oxygen Delivery Autopap Autopap 10/19/24 08:03 10/19/24 08:04 Temperature Pulse Rate 64 Respiratory Rate 18 Blood Pressure Pulse Oximetry 93 Oxygen Delivery Room Air Exam Const: General: cooperative, healthy appearing and comfortable Orientation/consciousness: oriented to person, oriented to place and oriented to time HENMT: Head: normal to inspection Ears: hearing grossly normal bilaterally Eyes: General: appearance normal, both eyes and all related structures Neck: Neck: normal visual inspection Chest: Chest palpation & inspection: normal inspection of the chest Resp: Effort & Inspection: normal respiratory effort and able to speak in complete sentences Auscultation: no crackles, no rales, no rhonchi, no wheezes and lung sounds not diminished Cardio: Jugular venous distension: no JVD GI: Inspection: normal to inspection GI Palp: No abdominal tenderness Skin: General skin exam: normal color Neuro: General: oriented to person, oriented to place and oriented to time Extrem: General: normal to inspection Psych: Appearance: grossly normal Results Laboratory Findings 10/19/24 05:45 10/19/24 05:45 ABG, PT/INR, D-dimer: PT/INR, D-dimer PT 13.6 Seconds (11.1-14.7) 10/18/24 08:51 INR 1.0 10/18/24 08:51 Abnormal lab findings: Abnormal Labs 10/18/24 10/18/24 10/19/24 08:51 09:50 05:45 WBC 13.4 H RBC 4.13 L 3.91 L Hgb 13.4 L 12.6 L Hct 39.6 L 38.1 L Neut % (Auto) 73.3 H Lymph % (Auto) 15.9 L [place] % (Auto) 8.9 H 9.7 H [place] # (Auto) 1.2 H 1.0 H Abs Immat Gran (auto) 0.04 H 0.05 H Absolute Neuts (auto) 9.9 H Sodium 133 L 134 L Total Bilirubin 1.5 H Lipase 22 L Urine Ketones Trace H Leukocyte Esterase Rfl 1+ H Urine RBC 3-5 H Urine WBC 6-10 H Diagnostic Findings Additional studies: ITS Impressions Chest X-Ray 10/18/24 09:42 IMPRESSION: Small left-sided pleural effusion with adjacent compressive atelectasis. Redemonstration of a multilobulated asymmetry within the left upper lobe, increased in size from 2010 with tenting of the adjacent pleura. Unless this is a known finding, cross-sectional imaging is recommended. Chest/Abdomen/Pelvis CTA 10/18/24 10:10 IMPRESSION: 1. ADDENDUM: 10/18/24 1322 CORRECTION: The report was finalized prior to assessment of the abdomen and pelvis portion of the study. The comparison, findings and impression section should read- COMPARISON: CT abdomen dated 10/05/2007 FINDINGS: Chest: No pulmonary embolism. Patchy groundglass opacities and consolidation in the left lower lobe and dependent lingula consistent with aspiration or pneumonia. A few tiny calcified nodules in the right lower lobe and a couple large calcifications in the left upper lobe consistent with old granulomatous disease. No pulmonary edema or pleural effusion. Heart size is normal. No pericardial effusion. Thoracic aorta is normal in caliber with no dissection. No pathologically enlarged thoracic lymphadenopathy. Small sliding-type hiatal hernia. Moderate thoracic spondylosis with chronic appearing mild anterior wedging of a few mid and lower thoracic vertebral bodies. Anterior plate and screw fixation for C4-C7 anterior spinal fusion with incompletely visualized on the central supply assistant topogram. Abdomen/pelvis: Liver, gallbladder, pancreas, bilateral adrenal glands and right kidney are normal. 2.1 cm left renal cyst. A few small splenic calcific lesions consistent with old granulomatous disease. Bowels including the appendix are normal. Bladder is normal. Likely bilateral vasectomy clips. Lung the right spermatic cord and project over the left scrotum on the central supply assistant topogram. No free intraperitoneal gas or fluid. No pathologically enlarged abdominal or pelvic lymphadenopathy. Mild lumbar spondylosis.
[2024-10-19] MEDS: AZITHROMYCIN IV 500 MG in SODIUM CHLORIDE 0.9% IV 250 ML IVPB (10:48)
[2024-10-19 11:05] LABS: CRP 7.4 mg/dL (<1.0)
[2024-10-19 11:11] LABS: NT Pro B Type Natriuretic Pept 124 pg/mL (19.9-100)
[2024-10-19] MEDS: HYDROcodone/acetaminophen (*CRX) 5-325 MG TABLET 1 TAB PO ×2 (12:11→17:19)
[2024-10-19 13:20] LABS: Influenza A QL RT-PCR Negative (Negative); Influenza B QL RT-PCR Negative (Negative); RSV RNA, RT-PCR Negative (Negative); SARS-CoV-2 RNA PCR Negative (Negative)
[2024-10-19] MEDS: MONTELUKAST SODIUM 10 MG TABLET PO (17:18)
[2024-10-19 17:34] LABS: Procalcitonin 0.1 ng/mL
[2024-10-19] MEDS: PRAVASTATIN SODIUM 20 MG TABLET PO (20:38)
[2024-10-20] VITALS (7 sets, daily range): BP systolic 116–141; BP diastolic 71–76; PULSE 63–80; RESP 18–20; TEMP 36.2–36.5; O2SAT 93–98
[2024-10-20] MEDS: PIPERACILLIN/TAZOBACTAM SOD 4.5 GM in SODIUM CHLORIDE 0.9% IV 100 ML 200 ML IVPB ×4 (02:06→20:50)
[2024-10-20] MEDS: HYDROcodone/acetaminophen (*CRX) 5-325 MG TABLET 1 TAB PO ×3 (06:47→20:53)
[2024-10-20] MEDS: FLUTICASONE/SALMETEROL 230-21 MCG INHALER 1 PUFF 2 PUFF INHALATION ×2 (08:09→19:25)
--- NOTE | 2024-10-20 08:21 | P.PNIM_ITS ---
Progress Note: A&P Assessment and Plan (1) Pneumonia: Qualifiers: Aspiration pneumonia type: unspecified Laterality: left Lung location: lower lobe of lung Pneumonia type: aspiration pneumonia Qualified Code(s): J69.0 - Pneumonitis due to inhalation of food and vomit Code(s): J18.9 - Pneumonia, unspecified organism Status: Acute Assessment and Plan: * CXR: Small left-sided pleural effusion with adjacent compressive atelectasis. Redemonstration of a multilobulated asymmetry within the left upper lobe, increased in size from 2010 with tenting of the adjacent pleura. Unless this is a known finding, cross-sectional imaging is recommended. * CTA chest/abd/pelvis: 1. No pulmonary embolism. 2. Aspiration and/or pneumonia in the left lower lobe and dependent lingula. 3. No acute intra-abdominal/pelvic process. * has been on multiple outpatient abx -> amoxicillin x2, keflex x1, and doxycycline x1 with most recent prescribed on 09/10 * possible aspiration noted on imaging, obtain ST evaluation -> no abnormalities per bedside swallow. consider further imaging if further concerns arise. * started on Vancomycin and Zosyn on 10/18 due to concerns for aspiration * check sputum culture, respiratory pathogen panel, pneumococcal, mycoplasma, Legionella, and MRSA. * Patient reports recent sputum culture grew Staphylococcus sepsis pansensitive. * supportive care: Mucinex, Tessalon Perles, Tylenol, DuoNebs as needed * monitor WBC * Pulmonology consult * Serum mycoplasma IgM, urine Legionella/pneumococcal, respiratory pathogen panel pending * Continue Zosyn & Azithro, monitor WBC * Likely discharge on (10/21) (2) Hypertension: Qualifiers: Hypertension type: primary hypertension Qualified Code(s): I10 - Essential (primary) hypertension Code(s): I10 - Essential (primary) hypertension Status: Chronic Assessment and Plan: * chronic, currently 140/76 * continue home medications: Losartan * monitor (3) Sleep apnea: Code(s): G47.30 - Sleep apnea, unspecified Status: Acute Assessment and Plan: * continue home CPAP Plan Diet: Heart healthy GI Prophylaxis: N/a DVT Prophylaxis: Lovenox IV fluids: LR 100 mL/hour x1L Lines/Tubes: Peripheral IV Code Status: Full code Subjective Date/time seen: 10/20/24 08:21 Interval history: 73 y/o M with PMH of HTN, HLD and GERD presents here with a cough and chest wall pain. 10/20/2024 Patient sitting comfortably in bed at time of examination. Review of Systems Review of Systems: All systems reviewed & are unremarkable except as noted in HPI and below Exam Const: General: comfortable and no acute distress Other: , male, elderly, nontoxic appearance HENMT: Face/Nose/Sinus: Normal nares present Mouth: Yes moist mucous membranes Eyes: General: appearance normal, both eyes and all related structures Sclera: sclerae normal Pupils: Equal, round and reactive pupils present EOM: EOMs intact bilaterally Chest: Other: Tenderness to the anterior/lower chest wall along patient's lower ribcage. No deformities or edema noted. Resp: Effort & Inspection: normal respiratory effort Auscultation: clear to auscultation bilaterally Cardio: Rate: regular rate Rhythm: regular rhythm Other: S1-S2 present without murmur, rub, ectopy GI: Other: Abdomen soft, nondistended, nontender. Normoactive bowel sounds in all quadrants. Skin: General skin exam: normal color and no rashes or lesions noted Wounds: no wounds Neuro: Cranial nerves: Yes Equal, round and reactive pupils present Speech: normal speech Motor exam (neuro): 5/5 motor strength present throughout Sensory Exam: normal sensation Other: A&O x4 Extrem: General: normal to inspection Psych: Mental Status: mental status grossly normal Affect: normal affect Other: Good insight and judgment, very pleasant Objective Data Vital Signs Vital Signs: Vital Signs - 24 hr 10/19/24 14:00 10/19/24 21:38 10/19/24 21:40 Temperature 97.8 F Pulse Rate 63 80 70 Respiratory Rate 18 20 20 Blood Pressure 109/57 L Pulse Oximetry 95 94 Oxygen Delivery Room Air Fraction of Inspired Oxygen 21 10/19/24 21:41 10/19/24 21:57 10/20/24 01:52 Temperature 98.4 F Pulse Rate 80 67 79 Respiratory Rate 22 H 20 20 Blood Pressure 146/72 H Pulse Oximetry 96 94 96 Oxygen Delivery Autopap Autopap Fraction of Inspired Oxygen 10/20/24 05:10 10/20/24 06:00 10/20/24 08:09 Temperature 97.7 F Pulse Rate 80 64 Respiratory Rate 20 18 Blood Pressure 140/76 Pulse Oximetry 96 98 94 Oxygen Delivery Autopap Room Air Fraction of Inspired Oxygen Intake/Output Intake/Output: Intake & Output 10/17/24 10/18/24 10/19/24 10/20/24 23:59 23:59 23:59 23:59 Intake Total 1148.3 1770 100 Balance 1148.3 1770 100 Meds/Results Medications: Active Medications Generic Name Dose Route Start Last Admin Trade Name Freq PRN Reason Stop Dose Admin Acetaminophen 650 mg 10/18/24 12:28 Acetaminophen 325 Mg Tablet PO Q4H PRN Mild Pain (1-3) or Fever Hydrocodone Bitart/Acetaminophen 1 tab 10/18/24 12:28 10/20/24 06:47 Hydrocodone/Acetaminophen (*Crx) 5-325 Mg Tablet PO 1 tab Q4H PRN Administration Pain Rated 4-6 Albuterol/Ipratropium 3 ml 10/18/24 13:31 Ipratropium 0.5 Mg/Albuterol Sulfate 2.5 Mg Ampul.Neb 3 Ml INHALATION Q6HRT PRN Shortness Of Breath Or Wheezing Benzonatate 100 mg 10/18/24 13:31 Benzonatate 100 Mg Capsule PO TID PRN Cough Enoxaparin Sodium 40 mg 10/19/24 09:00 10/19/24 09:14 Enoxaparin 40 Mg/0.4 Ml Syringe SUB-Q 40 mg DAILY BRAIN Administration Guaifenesin 600 mg 10/18/24 21:00 10/19/24 20:39 Guaifenesin 12 Hr 600 Mg Tabcr PO Not Given Q12HR BRAIN Piperacillin Sod/Tazobactam 100 mls @ 200 mls/hr 10/18/24 14:00 10/20/24 02:06 Sod 4.5 gm/ Sodium Chloride IVPB 200 mls/hr Q6H BRAIN Administration Azithromycin 500 mg/ Sodium 250 mls @ 250 mls/hr 10/19/24 10:00 10/19/24 11:48 Chloride IVPB 10/22/24 09:59 Infused DAILY BRAIN Infusion Ibuprofen 400 mg 10/19/24 00:03 Ibuprofen 400 Mg Tablet PO Q6H PRN Pain Rated 1-3 Lidocaine 1 patch 10/19/24 09:00 10/19/24 09:13 Lidocaine 5% Patch TRANSDERM 1 patch DAILY BRAIN Administration Losartan Potassium 50 mg 10/19/24 09:00 10/19/24 09:12 Losartan Potassium 50 Mg Tablet PO 50 mg DAILY BRAIN Administration Montelukast Sodium 10 mg 10/19/24 18:00 10/19/24 17:18 Montelukast Sodium 10 Mg Tablet PO 10 mg QPM BRAIN Administration Morphine Sulfate 2 mg 10/18/24 12:28 10/19/24 09:14 Morphine Sulfate (*Crx) 2 Mg/Ml Inj IV PUSH 2 mg Q2H PRN Administration Pain Rated 7-10 Ondansetron HCl 4 mg 10/18/24 12:28 10/19/24 02:47 Ondansetron Inj 4 Mg/2 Ml Vial IV PUSH 4 mg Q4H PRN Administration Nausea Pantoprazole Sodium 40 mg 10/19/24 09:00 10/19/24 17:19 Pantoprazole 40 Mg Tablet PO 40 mg BID BRAIN Administration Polyethylene Glycol 17 gm 10/18/24 13:35 Polyethylene Glycol 3350 17 Gm Powd.Pack PO QAM PRN Constipation Pravastatin Sodium 20 mg 10/19/24 21:00 10/19/24 20:38 Pravastatin Sodium 20 Mg Tablet PO 20 mg HS BRAIN Administration Fluticasone/Salmeterol 2 puff 10/19/24 08:00 10/20/24 08:09 Fluticasone/Salmeterol 230-21 Mcg Inhaler 1 Puff INHALATION 2 puff Q12HRT BRAIN Administration Tamsulosin HCl 0.4 mg 10/19/24 09:00 10/19/24 09:11 Tamsulosin Hcl 0.4 Mg Capsule PO 0.4 mg DAILY BRAIN Administration Radiology Results: ITS Impressions Chest X-Ray 10/18/24 09:42 IMPRESSION: Small left-sided pleural effusion with adjacent compressive atelectasis. Redemonstration of a multilobulated asymmetry within the left upper lobe, increased in size from 2010 with tenting of the adjacent pleura. Unless this is a known finding, cross-sectional imaging is recommended. Chest/Abdomen/Pelvis CTA 10/18/24 10:10 IMPRESSION: 1. ADDENDUM: 10/18/24 1327 CORRECTION: The report was finalized prior to assessment of the abdomen and pelvis portion of the study. The comparison, findings and impression section should read- COMPARISON: CT abdomen dated 10/05/2007 FINDINGS: Chest: No pulmonary embolism. Patchy groundglass opacities and consolidation in the left lower lobe and dependent lingula consistent with aspiration or pneumonia. A few tiny calcified nodules in the right lower lobe and a couple large calcifications in the left upper lobe consistent with old granulomatous disease. No pulmonary edema or pleural effusion. Heart size is normal. No pericardial effusion. Thoracic aorta is normal in caliber with no dissection. No pathologically enlarged thoracic lymphadenopathy. Small sliding-type hiatal hernia. Moderate thoracic spondylosis with chronic appearing mild anterior wedging of a few mid and lower thoracic vertebral bodies. Anterior plate and screw fixation for C4-C7 anterior spinal fusion with incompletely visualized on the junior recruiter topogram. Abdomen/pelvis: Liver, gallbladder, pancreas, bilateral adrenal glands and right kidney are normal. 2.1 cm left renal cyst. A few small splenic calcific lesions consistent with old granulomatous disease. Bowels including the appendix are normal. Bladder is normal. Likely bilateral vasectomy clips. Lung the right spermatic cord and project over the left scrotum on the junior recruiter topogram. No free intraperitoneal gas or fluid. No pathologically enlarged abdominal or pelvic lymphadenopathy. Mild lumbar spondylosis. IMPRESSION: 1. No pulmonary embolism. 2. Aspiration and/or pneumonia in the left lower lobe and dependent lingula. 3. No acute intra-abdominal/pelvic process. Labs Labs: Laboratory Results - last 24 hr 10/18/24 10/18/24 10/19/24 14:49 16:29 05:45 C-Reactive Protein 7.4 H NT-Pro-B Natriuret Pep 124 H Procalcitonin 0.1 Chlamy pneumoniae PCR Not detected Adenovirus (PCR) Not detected B. pertussis DNA (PCR) Not detected B.parapertussis DNA PCR Not detected Coronavirus OC43 (PCR) Not detected Coronavirus HKU1 (PCR) Not detected Coronavirus 229E (PCR) Not detected Coronavirus NL63 (PCR) Not detected Human Metapneumovir PCR Not detected Influenza A (RT-PCR) Influenza A (H1) PCR Not detected Influ A (H1/09) PCR Not detected Influenza A (H3) PCR Not detected Influenza Type A (PCR) Not detected Influenza B (RT-PCR) Influenza Type B (PCR) Not detected M.pneumoniae IgM Titer <770 M. pneumoniae (PCR) Not detected Parainfluenza 1 (PCR) Not detected Parainfluenza 2 (PCR) Not detected Parainfluenza 3 (PCR) Not detected Parainfluenza 4 (PCR) Not detected RSV (RT-PCR) RSV (PCR) Not detected Entero/Rhino (PCR) Not detected SARS-CoV-2 (PCR) Not detected SARS-CoV-2 RNA (RT-PCR) 10/19/24 12:01 C-Reactive Protein NT-Pro-B Natriuret Pep Procalcitonin Chlamy pneumoniae PCR Adenovirus (PCR) B. pertussis DNA (PCR) B.parapertussis DNA PCR Coronavirus OC43 (PCR) Coronavirus HKU1 (PCR) Coronavirus 229E (PCR) Coronavirus NL63 (PCR) Human Metapneumovir PCR Influenza A (RT-PCR) Negative Influenza A (H1) PCR Influ A (H1/09) PCR Influenza A (H3) PCR Influenza Type A (PCR) Influenza B (RT-PCR) Negative Influenza Type B (PCR) M.pneumoniae IgM Titer M. pneumoniae (PCR) Parainfluenza 1 (PCR) Parainfluenza 2 (PCR) Parainfluenza 3 (PCR) Parainfluenza 4 (PCR) RSV (RT-PCR) Negative RSV (PCR) Entero/Rhino (PCR) SARS-CoV-2 (PCR) SARS-CoV-2 RNA (RT-PCR) Negative Quality VTE Prophylaxis VTE prophylaxis: pharmacologic ordered
[2024-10-20 08:33] LABS: Hematocrit 38.4 % (42.0-52.0); Hemoglobin 12.9 g/dL (14.0-18.0); Immature Granulocyte Percent A 0.7 % (0-0.5); Lymphocytes Absolute Auto 2.18 K/mm3 (0.9-3.2); Mean Corpuscular HGB Conc 33.6 g/dl (32-36); Mean Corpuscular Hemoglobin 32.6 pg (26-34); Mean Corpuscular Volume 97.0 fl (80-100); Nucleated Red Blood Cells Absolute Auto 0.000 K/mm3 (0.0-0.012); Nucleated Red Blood Cells Perc 0.0 % (0.0-0.2); Platelet Count Result 282 k/mm3 (150-375); Red Blood Count 3.96 M/mm3 (4.6-6.20); White Blood Count 8.6 K/mm3 (4.5-10.0)
[2024-10-20] MEDS: LOSARTAN POTASSIUM 50 MG TABLET PO (09:02)
[2024-10-20] MEDS: LIDOCAINE 5% PATCH 1 PATCH TRANSDERM (09:03)
[2024-10-20] MEDS: guaiFENesin 12 HR 600 MG TABCR PO (09:03)
[2024-10-20] MEDS: ENOXAPARIN 40 MG/0.4 ML SYRINGE SUB-Q (09:04)
[2024-10-20] MEDS: PANTOPRAZOLE 40 MG TABLET PO ×2 (09:04→18:33)
[2024-10-20] MEDS: TAMSULOSIN HCL 0.4 MG CAPSULE PO (09:04)
[2024-10-20 09:24] LABS: Alanine Aminotransferase 31 U/L (6-50); Albumin Level 3.5 g/dL (3.5-5.1); Alkaline Phosphatase 56 U/L (38-126); Anion Gap 5 mmol/L (4-12); Aspartate Amino Transferase 51 U/L (17-59); Bilirubin,Total 0.9 mg/dL (0.2-1.3); Blood Urea Nitrogen 10 mg/dL (9-20); Calcium 9.0 mg/dL (8.4-10.2); Carbon Dioxide 22 mmol/L (22-30); Chloride 107 mmol/L (98-107); Estimated CRCL calculation 61 ml/min; Estimated Glomerular Filt Rate > 60; Glucose 148 mg/dL (65-110); Potassium 4.4 mmol/L (3.4-5.0); Sodium 134 mmol/L (137-145); Total Protein 6.4 g/dL (6.3-8.2)
[2024-10-20] MEDS: AZITHROMYCIN IV 500 MG in SODIUM CHLORIDE 0.9% IV 250 ML IVPB (09:57)
[2024-10-20] MEDS: MONTELUKAST SODIUM 10 MG TABLET PO (18:33)
[2024-10-20] MEDS: PRAVASTATIN SODIUM 20 MG TABLET PO (20:51)
[2024-10-21 02:11] VITALS: RESP 17
[2024-10-21] MEDS: PIPERACILLIN/TAZOBACTAM SOD 4.5 GM in SODIUM CHLORIDE 0.9% IV 100 ML 200 ML IVPB ×2 (02:44→09:09)
[2024-10-21 05:14] VITALS: BP 133/70; PULSE 60; RESP 18; TEMP 36.4; O2SAT 98
[2024-10-21 06:11] LABS: Hematocrit 36.5 % (42.0-52.0); Hemoglobin 12.0 g/dL (14.0-18.0); Immature Granulocyte Percent A 0.6 % (0-0.5); Lymphocytes Absolute Auto 2.40 K/mm3 (0.9-3.2); Mean Corpuscular HGB Conc 32.9 g/dl (32-36); Mean Corpuscular Hemoglobin 32.3 pg (26-34); Mean Corpuscular Volume 98.4 fl (80-100); Nucleated Red Blood Cells Absolute Auto 0.000 K/mm3 (0.0-0.012); Nucleated Red Blood Cells Perc 0.0 % (0.0-0.2); Platelet Count Result 263 k/mm3 (150-375); Red Blood Count 3.71 M/mm3 (4.6-6.20); White Blood Count 8.2 K/mm3 (4.5-10.0)
[2024-10-21 06:30] LABS: Alanine Aminotransferase 32 U/L (6-50); Albumin Level 3.3 g/dL (3.5-5.1); Alkaline Phosphatase 62 U/L (38-126); Anion Gap 5 mmol/L (4-12); Aspartate Amino Transferase 48 U/L (17-59); Bilirubin,Total 0.8 mg/dL (0.2-1.3); Blood Urea Nitrogen 10 mg/dL (9-20); Calcium 8.6 mg/dL (8.4-10.2); Carbon Dioxide 23 mmol/L (22-30); Chloride 108 mmol/L (98-107); Estimated CRCL calculation 57 ml/min; Estimated Glomerular Filt Rate > 60; Glucose 95 mg/dL (65-110); Potassium 3.8 mmol/L (3.4-5.0); Sodium 136 mmol/L (137-145); Total Protein 6.3 g/dL (6.3-8.2)
[2024-10-21] MEDS: FLUTICASONE/SALMETEROL 230-21 MCG INHALER 1 PUFF 2 PUFF INHALATION (08:06)
[2024-10-21 08:09] VITALS: PULSE 73; RESP 18
[2024-10-21 08:10] VITALS: PULSE 73; RESP 18; O2SAT 92
[2024-10-21] MEDS: LIDOCAINE 5% PATCH 1 PATCH TRANSDERM (09:09)
[2024-10-21] MEDS: TAMSULOSIN HCL 0.4 MG CAPSULE PO (09:10)
[2024-10-21] MEDS: LOSARTAN POTASSIUM 50 MG TABLET PO (09:10)
[2024-10-21] MEDS: PANTOPRAZOLE 40 MG TABLET PO (09:10)
[2024-10-21] MEDS: ENOXAPARIN 40 MG/0.4 ML SYRINGE SUB-Q (09:10)
[2024-10-21] MEDS: AZITHROMYCIN IV 500 MG in SODIUM CHLORIDE 0.9% IV 250 ML IVPB (09:56)
[2024-10-21] MEDS: SODIUM CHLORIDE 0.9% IV 100 ML 75 ML (10:33)
--- NOTE | 2024-10-21 13:49 | PM.DS ---
DS: Admitting Diagnosis Discharge Date 10/21 Admitting Diagnosis pneumonia DS: Discharge Diagnosis Discharge Diagnosis (1) Pneumonia: Qualifiers: Aspiration pneumonia type: unspecified Laterality: left Lung location: lower lobe of lung Pneumonia type: aspiration pneumonia Qualified Code(s): J69.0 - Pneumonitis due to inhalation of food and vomit Code(s): J18.9 - Pneumonia, unspecified organism Status: Acute (2) Hypertension: Qualifiers: Hypertension type: primary hypertension Qualified Code(s): I10 - Essential (primary) hypertension Code(s): I10 - Essential (primary) hypertension Status: Chronic (3) Sleep apnea: Code(s): G47.30 - Sleep apnea, unspecified Status: Acute DS: Summary Hospital Course Hospital Course: 73 y/o M with PMH of HTN, HLD and GERD presents here with a cough and chest wall pain. # Pneumonia - admitted for low-grade fever, pleuritic pain, cough, phlegm production, leukocytosis, MRSA nasal swab negative, CT scan of the chest with left lower lobe and lingula infiltrate consistent with pneumonia. He had been on several antibiotics: amoxicillin 07/27/2024, amoxicillin and Keflex on 08/10/2024 and doxycycline on 09/10/2024. Sputum culture grew Staphlococcus (cerda sensitive) at the outside hospital, MRSA swab negative during this hospitalization. Patient is on room air with saturations 93%. He is afebrile. white blood cell count wnl, creatinine 1.03, BNP is 124, CRP is 7.4. COVID, influenza, RSV RT PCR assay negative He is normally following with pulm Dr. Armas in [place]. he is not able to cough up much but his reports that he had been avoiding it all togteras it is painful- that is why he stopped taking mucinex (it was helping him bring phlegm up). Will order chest xray to be repeated within 1 week after discharge to ensure improvement of symptoms. Encouraged top use lidocaine patch if needed, do IS, ambulate and stay hydrated. He will be sent home with 1 more dose of azithro, 1 dose of Augmentin is to be given now and then 15 more doses to complete the course. Status at Discharge Functional status at discharge: independent ambulation Overall status at discharge: patient is progressing back to baseline Time Spent with Patient Time attestation: Total time spent providing and/or coordinating discharge services: Exam Const: General: comfortable and no acute distress Other: , male, elderly, nontoxic appearance HENMT: Face/Nose/Sinus: Normal nares present Mouth: Yes moist mucous membranes Eyes: General: appearance normal, both eyes and all related structures Sclera: sclerae normal Pupils: Equal, round and reactive pupils present EOM: EOMs intact bilaterally Chest: Other: Tenderness to the anterior/lower chest wall along patient's lower ribcage. No deformities or edema noted. Resp: Effort & Inspection: normal respiratory effort Auscultation: clear to auscultation bilaterally Cardio: Rate: regular rate Rhythm: regular rhythm Other: S1-S2 present without murmur, rub, ectopy GI: Other: Abdomen soft, nondistended, nontender. Normoactive bowel sounds in all quadrants. Skin: General skin exam: normal color and no rashes or lesions noted Wounds: no wounds Neuro: Cranial nerves: Yes Equal, round and reactive pupils present Speech: normal speech Motor exam (neuro): 5/5 motor strength present throughout Sensory Exam: normal sensation Other: A&O x4 Extrem: General: normal to inspection Psych: Mental Status: mental status grossly normal Affect: normal affect Other: Good insight and judgment, very pleasant DS: Data Data Completed and Pending Completed studies during hospitalization: chest xray, chest/abd/pelvis cta Labs on day of discharge: Labs from last 24 hours 10/21/24 10/21/24 05:23 00:13 WBC 8.2 RBC 3.71 L Hgb 12.0 L Hct 36.5 L MCV 98.4 MCH 32.3 MCHC 32.9 RDW 12.7 Plt Count 263 MPV 9.9 Immature Gran % (Auto) 0.6 H Neut % (Auto) 55.1 Lymph % (Auto) 29.3 [place] % (Auto) 8.8 H Eos % (Auto) 5.1 H Baso % (Auto) 1.1 Lymph # (Auto) 2.40 [place] # (Auto) 0.7 H Eos # (Auto) 0.4 H Baso # (Auto) 0.1 Abs Immat Gran (auto) 0.05 H Absolute Neuts (auto) 4.5 Absolute Nucleated RBC 0.000 Nucleated RBC % 0.0 Sodium 136 L Potassium 3.8 Chloride 108 H Carbon Dioxide 23 Anion Gap 5 BUN 10 Creatinine 1.10 Estim Creat Clear Calc 57 Estimated GFR > 60 Glucose 95 Calcium 8.6 Total Bilirubin 0.8 AST 48 ALT 32 Alkaline Phosphatase 62 Total Protein 6.3 Albumin 3.3 L Legionella Source Cancelled Legionella Culture Cancelled Legionella Cult Status Cancelled Urine Pneumococcal Ag Cancelled Preliminary micro results at discharge 10/18/24 11:40 Blood Culture - Preliminary Blood 10/18/24 11:39 Blood Culture - Preliminary Blood Discharge Plan Discharge Attending physician on discharge: Irina Pelayo Consulting providers: Rene Sepulveda; Anthony Ramos Discharging Clinician: Brynn Enamorado Patient Disposition: Home Activity: may shower Diet: heart healthy Discharge Instructions: Please take your antibiotics as prescribed. Continue to use mucinex as it will help you cough phlegm up. You have an order for chest xray- please have it repeated in 4-6 days (right before you see your PCP or breakdown worker). Use lidocaine patch to ease up pain. Patient Instructions: Antibiotic Form Patient Language: Bolivian Stand Alone Forms: General Discharge Information Follow-up/Referrals: Pawel,Alysia Gibbs M.D. [Non-Staff] - 2 Weeks Villatoro,Peng Siddiqui MD [Primary Care Provider] - 2 Weeks Discharge Medications: New amoxicillin-pot clavulanate 875-125 mg tablet 1 tablet PO Q12H Qty: 15 0RF hydrocodone-acetaminophen 5-325 mg Tablet 1 tablet PO Q6H PRN (Reason: Pain Rated 4-6) Qty: 10 0RF guaifenesin [Mucus Relief ER] 600 mg Tablet Extended Release 12hr 1,200 mg PO Q12HR Qty: 60 0RF Continued vibryn 20 mg PO DAILY omeprazole 40 mg capsule,delayed release(DR/EC) 40 mg PO QPM montelukast [Singulair] 10 mg tablet 10 mg PO QPM pravastatin 20 mg tablet 20 mg PO HS losartan 50 mg tablet 50 mg PO DAILY tamsulosin 0.4 mg capsule 0.4 mg PO DAILY testosterone 1 % (25 mg/2.5gram) gel in packet 1 packet topical DAILY fluticasone propion-salmeterol 230-21 mcg/actuation HFA aerosol inhaler 2 inh INHALATION BID acetaminophen [Aphen] 325 mg tablet 650 mg PO QID PRN (Reason: pain) ibuprofen [Addaprin] 200 mg tablet 400 mg PO Q6H PRN (Reason: pain) Other Ambulatory Orders: XR chest 2V (Routine) Timeframe: 1 Week Location: Determined by Patient Ordered By: Brynn Enamorado Date of admission: 10/19/24 10:13 Primary Care Provider: Irving,Peng Siddiqui Admitting Provider: Roberto Thakur Attending physician on admission: Robetro Thakur Condition: Stable Quality VTE Prophylaxis VTE prophylaxis: pharmacologic ordered Hospitalist MIPS Heart Failure (Exclusion) Patient has history of Heart Transplant or Left Ventricular Assistive Device?: No IF YES, STOP HERE Heart Failure (Qualifier) Patient has current or prior documentation of LVEF less than or equal to 40%, or mod/servere depressed LVSF?: No IF NO, STOP HERE
== END 2024-10-21 15:07 | disposition home or self-care (01) | DRG 179 ==
LOC: ANHED 13:16 → ANH3MEDSUR 13:24
PROVIDERS: Internal Medicine Pulmonary Disease; Physician Assistant; Student in an Organized Health Care Education/Training Program; Admitting Provider General Practice; Emergency Provider General Practice; PCP Internal Medicine; Visit Provider Nurse Practitioner
DX: J69.0 Pneumonitis due to inhalation of food and vomit (principal); E78.5 Hyperlipidemia, unspecified; G47.33 Obstructive sleep apnea (adult) (pediatric); H91.90 Unspecified hearing loss, unspecified ear; I10 Essential (primary) hypertension; J45.909 Unspecified asthma, uncomplicated; K21.9 Gastro-esophageal reflux disease without esophagitis; M19.90 Unspecified osteoarthritis, unspecified site; Z99.89 Dependence on other enabling machines and devices; Z85.828 Personal history of other malignant neoplasm of skin; Z20.822 Contact with and (suspected) exposure to COVID-19
CPT/HCPCS: 36415; 71046; 71275; 74177; 80053; 81001; 83605; 83690; 83735; 83880; 84145; 85025; 85610; 85730; 86140; 86738; 87040; 87081; 87086; 87449; 87637; 87641; 87899; 92610; 93005; 94640; 96361; 96365; 96366; 96367; 96375; 96376; 99285; A9270; G0378; J0456; J0696; J1650; J2270; J2405; J2543; J3373; J7050; J7120; Q9967

== ENCOUNTER 2024-10-26 14:51 | Outpatient (CLI) | payer MEDICARE, OTHER, SELFPAY ==
--- NOTE | ~2024-10-26 | XR_ITS ---
EXAMINATION: XR chest 2V 10/26/2024 15:10 INDICATION: Pneumonia PROCEDURE: 2 view chest COMPARISON: 10/18/2024 FINDINGS: The lungs are clear. The cardiomediastinal silhouette is within normal limits. There are no pleural effusions. There is no pneumothorax suspected. There is calcified granuloma left upper lobe. There are changes of cervical thoracic spinal fusion. IMPRESSION: 1: NO ACUTE CARDIOPULMONARY DISEASE. Reviewed, dictated and finalized at location O.
== END 2024-10-26 14:52 | disposition home or self-care (01) ==
PROVIDERS: PCP Internal Medicine; Visit Provider Nurse Practitioner
DX: J18.9 Pneumonia, unspecified organism (principal)
CPT/HCPCS: 71046

== ENCOUNTER 2024-10-26 15:47 | Outpatient (CLI) | payer MEDICARE, OTHER, SELFPAY ==
--- OUTSIDE RECORDS SUMMARY | 2024-10-26 15:51 | XMS_ITS | Clinical Summary ---
Author Organization [facility] Address [address] [place] [address] Care Team Providers Care Steam Cleaner Name Role Phone Peng Villatoro MD Primary Care Provider Source Comments [facility],non-owned Affiliates and Associated Physician Practices is amultiple site organization consisting of ambulatory clinics and hospital sitesin [place], [place], [place] and [place]. This disclosure is being madepursuant to the Care Everywhere program and may not contain all information available regarding this patient. Last updated 17.[facility] Allergies No known active allergies Medications * [...] on file Legal Sex Male 5:50 PM HAM MARKER Gender Identity Not on file Sexual Orientation Not on file Last Filed Vital Signs Vital Sign Reading Time Taken Comments Blood Pressure 120/78 02/23/2018 10:40 AM HAM MARKER Pulse 71 02/23/2018 10:40 AM HAM MARKER Temperature 37.2 C (98.9 F) 02/23/2018 10:40 AM HAM MARKER Respiratory Rate 16 02/23/2018 10:40 AM HAM MARKER Oxygen Saturation 98% 02/23/2018 10:40 AM HAM MARKER Inhaled Oxygen Concentration - - Weight 81.6 kg (180 lb) 02/23/2018 10:40 AM HAM MARKER Height 167.6 cm (5' 6) 02/23/2018 10:40 AM HAM MARKER Body Mass Index 29.05 02/23/2018 10:40 AM HAM MARKER Plan of Treatment Health Maintenance Due Date [...] this topic Insurance MEDICARE MEDICARE Care Teams Steam Cleaner Relationship Specialty Start Date End Date Peng Villatoro MD [address] [place] [phone] PCP - General Internal Medicine 04/25/17
--- OUTSIDE RECORDS SUMMARY | 2024-10-26 15:51 | XMS_ITS | Clinical Summary ---
Author Organization [facility] Address [address] [place] [address] Care Team Providers Care Sales Merchandiser Name Role Phone Peng Villatoro MD Primary Care Provider Ca Cox MD Unavailable Gabby Churchill MD Unavailable [phone] Osmel Patel MD Unavailable [phone] Fei Barajas OD Unavailable [phone] Allergies No known active allergies Medications [...] medication Assessment & Plan (04/29/2023 1:23 PM STUDENT AFFAIRS VICE PRESIDENT): I have started gabapentin 300 mg nightly try to consolidate patient sleep and Relieve the tingling and pain in his feet. Esophageal stricture 01/07/2023 Transient ischemic attack 01/07/2023 Pain in both upper extremities 04/30/2022 Assessment & Plan (04/30/2022 2:16 PM STUDENT AFFAIRS VICE PRESIDENT): I did inform the patient to message his primary care for provider for further evaluation. The patient verbalized that he would message in [facility]. Obstructive sleep apnea 12/25/2021 Assessment & Plan [...] adapt Assessment & Plan (04/29/2023 1:24 PM STUDENT AFFAIRS VICE PRESIDENT): Due to continued symptoms, the patient will continue CPAP at 5-15 cm water pressure. Denied need for supplies. DME adapt Assessment & Plan (04/30/2022 2:15 PM STUDENT AFFAIRS VICE PRESIDENT): Patient continue to wear his CPAP in [...] (09/11/2020): Added automatically from request for surgery [id number] Sensorineural hearing loss (SNHL) of both ears 0 06/12/2020 Dysfunction of both eustachian tubes 06/12/2020 TMJ arthralgia 06/12/2020 Microscopic hematuria 03/09/2020 Upper back pain on right side 03/02/2020 Assessment & Plan (03/02/2020 4:33 PM STUDENT AFFAIRS VICE PRESIDENT): Musculoskeletal Pain Assessment: Musculoskeletal in nature, likely [...] heat/ice application. - Can use Biofreeze or Eureka Vanderwagen, sold over the counter, follow directions on [...] improvement he will need to go and pharmacy picking tech the antibiotic and begin as directed until gone. Start antibiotics after Friday if needed. General Discussion regarding Role of antibiotics: Antimicrobial therapy -- Many Upper Respiratory Infections are caused by viruses. Inappropriate use of antibiotics for viral respiratory infections can cause adverse events and contribute to development of antibiotic resistance. 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 [...] the box. Neti-pot OR Normal Saline Nose Noonan in the morning and the evening at [...] Encounters Date Type Department Care Team Description 10/18/2024 Orders Only [facility] [address] [place] [phone] Peng Villatoro MD 09/17/2024 1:20 PM CDT Office Visit [facility] [address] [place] [phone] Peng Villatoro MD Mixed hyperlipidemia (Primary Dx); Primary hypertension; Gastroesophageal reflux disease without esophagitis; Recurrent major depressive disorder, in full remission; BMI 34.0-34.9,adult 09/17/2024 Telephone [facility] [address] [place] [phone] Peng Villatoro MD PA ZEPBOUND 2.5MG/0.5ML (Sesay: [id number]) 09/11/2024 7:25 AM CDT - 09/11/2024 11:59 PM CDT Hospital Encounter [facility] [address] [place] [phone] Cough, unspecified type Discharge Disposition: Discharge to home or self care 09/10/2024 1:17 PM CDT - 09/10/2024 11:59 PM CDT Hospital Encounter [facility] [address] [place] [phone] Cough, unspecified type Discharge Disposition: Discharge to home or self care 08/27/2024 10:31 AM CDT - 08/27/2024 11:59 PM CDT Hospital Encounter [facility] [address] [place] [address] Tino Trevino MD Right hip pain (Primary Dx) Discharge Disposition: Discharge to home or self care 08/23/2024 1:15 PM CDT Office Visit [facility] [place] [address] [place] [phone] Vic Chen MD Obstructive sleep apnea (Primary Dx) 08/20/2024 Telephone [facility] [address] [place] [phone] Peng Villatoro MD PA TESTOSTERONE 25MG/2.5GM (1%) GEL (Sesay: [id number]//Status/Sent to Plan today/Drug/Testosterone 25 MG/2.5GM(1%) gel//Form/ Electronic PA Form (2017 LAPDP)/Original Claim Info/75 CALL HELP DESK/) 08/18/2024 1:45 PM CDT Office Visit [facility] [address] [facility] Advanced Medicine 12th [place] [address] [place] [address] Dean Samson MD Right shoulder pain, unspecified chronicity (Primary Dx); Chronic right shoulder pain; Arthritis of right shoulder 08/18/2024 1:06 PM CDT - 08/18/2024 11:59 PM CDT Hospital Encounter [facility] [address] [place] [address] Right shoulder pain, unspecified chronicity Discharge Disposition: Discharge to home or self care 08/13/2024 11:00 AM CDT Office Visit [facility] [address] [facility] Medical Office Building [address] [place] [phone] Jenny Martinez NP Hip pain, right (Primary Dx); Right hip pain 08/13/2024 10:27 AM CDT - 08/13/2024 11:59 PM CDT Hospital Encounter [facility] [address] [place] [address] [address] [place] [phone] Hip pain, right Discharge Disposition: Discharge to home or self care 08/06/2024 1:20 PM CDT Office Visit [facility] Head-Neck Division [address] [facility] Floor [address] [place] [address] Janell Delaney PA Laryngopharyngeal reflux (LPR) (Primary Dx) from Last 3 Months Immunizations Immunization Administration [...] on file Legal Sex Male 2:13 AM STUDENT AFFAIRS VICE PRESIDENT Gender Identity Male 02/08/2020 2:48 PM STUDENT AFFAIRS VICE PRESIDENT Sexual Orientation Straight 02/08/2020 2: 48 PM STUDENT AFFAIRS VICE PRESIDENT Obstetrics History Last Filed Vital Signs Vital [...] history exists Medical Devices Implanted Type Area Nps Device Identifier Shelf Expiration Date Model / Serial / Lot [employer],Gastric Clip,Resolution 360 Ultra Stomach Musculoskeletal Transplant [id number] Frozen Spine 7d Lordotic Trapezoid Spacer Allograft [id number] - [id number] - [id number] Implanted:Qty: 1 on 03/24/2024 by Roel Toro MD at [facility] N/A: Spine Cervical Musculoskeletal Transplant 01/07/2028 [id number] / [id number] / Musculoskeletal Transplant [id number] Freeze Dried Spine 7d Lordotic Trapezoid Spacer 762219 - [id number] - [id number] Implanted:Qty: 1 on 03/24/2024 by Roel Troo MD at [facility] N/A: Spine Cervical Musculoskeletal Transplant 01/11/2026 [id number] / [id number] / Musculoskeletal Transplant [id number] Frozen Spine 7d Lordotic Trapezoid Spacer Allograft 228269 - [id number] - [id number] Implanted:Qty: 1 on 03/24/2024 by Roel Toro MD at [facility] N/A: Spine Cervical Musculoskeletal Transplant 05/24/2028 [id number] / [id number] / [employer] Maxan 48mm Level 3 Spine Cervical Anterior Plate Bone Titanium [id number] - [id number] Implanted:Qty: 1 on 03/24/2024 by Roel Toro MD at [facility] N/A: Spine Cervical [employer] [id number] 8 / / [employer] 4mm 16mm Fix Screw Bone 14-745900 - [id number] Implanted:Qty: 6 on 03/24/2024 by Roel Toro MD at [facility] N/A: Spine Cervical [employer] [id number] / / [employer] 4.5mm 16mm Fix Screw Bone [id number] - [id number] Implanted:Qty: 2 on 03/24/2024 by Roel Toro MD at [facility] N/A: Spine Cervical [employer] [id number] 6 / / Explanted Type Area Nps Device Identifier Shelf Expiration Date Model / Serial / Lot [employer] 4mm 16mm Fix Screw Bone [id number] - [id number] Explanted:Qty: 1 on 03/24/2024 by Roel Toro MD at [facility] N/A: Spine Cervical [employer] [id number] / / Procedures Procedure Name Priority Date/Time Associated Diagnosis Comments SCAN - RADIOLOGY/IMAGING 10/18/2024 4:44 PM CDT SCAN - RADIOLOGY/IMAGING 10/18/2024 11:16 AM CDT SCAN - RADIOLOGY/IMAGING 10/18/2024 10:35 AM CDT AEROBIC CULTURE AND GRAM STAIN Routine 09/11/2024 7:00 AM CDT Cough, unspecified type XR CHEST PA LATERAL 2 VIEWS Schedule Routine, Read Routine (OP Routine) 09/10/2024 1:29 PM CDT Cough, unspecified type FLUORO GUIDED INJECTION HIP RIGHT Schedule Routine, Read Routine (OP Routine) 08/27/2024 11:22 AM CDT Right hip pain GA ARTHROCENTESIS ASPIR&/INJ MAJOR JT/BURSA W/O US Routine [...] Recently Relevant to Health Maintenance Results * SCAN - RADIOLOGY/IMAGING (10/18/2024 4:44 PM CDT) Anatomical Region Laterality Modality Other us Peng Villatoro MD Final Result * SCAN - RADIOLOGY/IMAGING (10/18/2024 11:16 AM CDT) Anatomical Region Laterality Modality Other us Peng Villatoro MD Final Result * SCAN - RADIOLOGY/IMAGING (10/18/2024 10:35 AM CDT) Anatomical Region Laterality Modality Other us Peng Villatoro MD Final Result * Aerobic culture and gram stain Sputum Sputum (09/11/2024 7:00 AM CDT) Direct Specimen Exam Stain: Abundant squamous epithelial cells seen indicating excessive oropharyngeal contamination. Culture will not be processed further. Please submit another specimen. Smear results called to and read back by: Charmaine Desai MT ([phone]) on 09/11/2024 12:06:45 by: Bryan Levin MLS Comment:Testing performed by : [facility], [address] [place] [address] Report Final Report: This is the final report. KEYONNA PATTEN Comment:Testing performed by : [facility], [address] [place]., [address] Sputum (Sputum) 09/11/2024 7 :00 AM CDT 09/11/2024 11:09 AM CDT Narrative KEYONNA PATTEN - 09/12/2024 8:16 AM CDT With susceptibility Testing performed by [facility] ([phone]) Specimens submitted from normally sterile body sites [...] - GENERA L ORDERABLES Final Result [facility] [address] [facility] Department [place] [address] * X-ray chest 2 views (09/10/2024 1:29 [...] hilar contours appear normal. LINES/TUBES: None. BONES: Zyak-en-shsdypod multilevel spondylosis thoracic spine. Cervical fusion plate new in the interval partially visualized. IMPRESSION: No acute findings or infiltrate. THIS IS AN ELECTRONICALLY VERIFIED FINAL REPORT 09/12/2024 1:30 PM - Electronically signed by Anthony Simental M.D. MJ: [facility] Report ID: [id number] Reading Location: [id number] Procedure Note Anthony Simental MD - 09/12/2024 [...] andhilar contours appear normal. LINES/TUBES: None. BONES: Mjqw-ok-owsxslla multilevel spondylosis thoracic spine. Cervical fusion plate new in the interval partially visualized. IMPRESSION: No acute findings or infiltrate. THIS IS AN ELECTRONICALLY VERIFIED FINAL REPORT 09/12/2024 1:30 PM - Electronically signed by Anthony Simental M.D. MJ: [facility] Report ID: [id number] Reading Location: [id number] us Vic Chen MD IMG XR PROCEDURES Final R esult * FL Fluoro Guided Injection Hip Right (08/27/2024 11:22 AM CDT) Narrative [facility] - 08/27/2024 11:22 AM CDT The images from this study are not interpreted by Radiology. Please refer to the physician's procedure / OR operative note. us Jenny [place] NP IMG FLUOROSCOPY PROCEDURE S Final Result [facility] * GA ARTHROCENTESIS ASPIR&/INJ MAJOR JT/BURSA W/O US (08/18/2024 [...] mL BUPivacaine HCl 0.5 % (5 mg/mL) Dean Samson MD IN CLINIC/BEDSIDE ORDERABL ES [...] signed by: Ana Herron MD Jenny [place] NP IMG XR PROCEDURES Final R esult * PSA screen (06/18/2024 10:10 AM CDT) PSA 0.7 0.0 - 4.0 ng/mL [facility] - Comment: Ruthie ECLIA methodology. According to the [employer], Serum PSA should decrease and [...] - 06/19/2024 8:10 AM CDT Performed at: - [address] [id number] [address] Police Officer: Rickey Poole PhD, Phone: [phone] us Peng Villatoro MD LAB BLOOD ORDERABLES F inal Result [facility] - 01 * Hepatitis C antibody (12/14/2018 12:18 PM CDT) Hep C Ab Nonreactive Nonreactive [facility] Comment: Interpretive Data Positive results should be confirmed by a molecular method. If positive, a second separately collected sample should be submitted for Hepatitis C Virus (HCV) RNA Detection and Quantitation by Real-Time Reverse Solar Installation Technician-PCR (RT-PCR). Current interpretive data was last revised on 2016. Blood specimen (specimen) 12/14/2018 12:18 PM CDT 12/14/2018 8:10 PM CDT Peng Villatoro MD LAB MICROBIOLOGY - GEN ERAL ORDERABLES Final Result Performing Organization Address [facility] Co de Phone Number KEYON[facility] [address] [place] [address] * COLONOSCOPY REPORT (04/16/2016) Anatomical Region Laterality Modality Other Narrative 04/16/2016 Ordered by an unspecified provider. Historical Provider GI PROCEDURE ORDERABLES F inal Result from Last 3 Months or Most Recently Relevant to Health Maintenance Insurance MEDICARE [employer] MEDICARE FOR LIFE MEDICARE FOR LIFE MEDICARE FOR LIFE Advance Directives For more information, please contact: [phone] * Full Code (Latest Code Status on File) Date Activated Date Inactivated Comments 03/24/2024 8:39 PM 03/25/2024 5:11 PM * Full Code Date Activated Date Inactivated Comments 10/18/2021 1:23 PM 10/18/2021 9:04 PM * Full Code Date Activated Date Inactivated Comments 08/18/2017 11:27 AM 08/18/2017 3:46 PM Care Teams Sales Merchandiser Relationship Specialty Start Date End Date Peng Villatoro MD PCP - General 04/16/16 Ca Cox MD Manufacturing Controls Engineer Dermatology 12/09/17 Gabby Churchill MD Manager Event Gastroenterology 12/09/17 Osmel Patel MD [address] [place] [address] Manager Event Gastroenterology 12/09/17 Fei Barajas, JAYCOB [address] [place] [address] Ophthalmology 12/09/17
[2024-10-27 10:08] LABS: C-Reactive Protein, Cardiac 1.79 mg/L (0.00-3.00)
== END 2024-10-26 15:48 | disposition home or self-care (01) ==
PROVIDERS: PCP Internal Medicine; Visit Provider Nurse Practitioner
DX: J18.9 Pneumonia, unspecified organism (principal)
CPT/HCPCS: 86141